=== PATIENT | female | born 1955 | race Caucasian/White ===

== ENCOUNTER → 2017-07-18 | Outpatient (CLI) | payer OTHER ==
[~2017-07-18] MED LIST: ABILIFY15 MG PO; ABILIFY30 MG PO; ADVAIR 500/501 DISK IH; ALBUTEROL17 G1 IH; AMBIEN10 MG PO; ATIVAN2 MG PO; BENZTROPINE ME0.5 MG PO; BUSPAR5 MG PO; CIPROFLOXACIN H10 ML BOTH EYES; CLONAZEPAM2 MG PO; DILAUDID2 MG PO; FLEXERIL10 MG PO; FUROSEMIDE80 MG PO; HYDROCHLOROTHIA25 MG PO; KLONOPIN0.5 M1 PO; KLONOPIN2 MG PO; KLOR-CON M2020 MEQ PO; LASIX40 MG PO; LASIX80 MG PO; LEXAPRO20 MG PO; OMEPRAZOLE40 M1 PO; OXECTA5 MG PO; PEPCID AC10 M1 PO; PERCOCET 10/1 TABLET PO; PERCOCET 5/31 TABLET PO; PRILOSEC10 MG PO; PROTONIX40 M1 PO; RANITIDINE HCL150 M1 PO; RANITIDINE HCL150 MG PO; RANITIDINE HCL300 M1 PO; RISPERDAL0.5 MG PO; RISPERIDONE2 MG PO; ROXICODONE5 MG PO; SINGULAIR10 MG PO; SPIRIVA1 INHALATI IH; SPIRONOLACTONE100 MG PO; SULFACETAMIDE S15 ML RIGHT EYE; TRAMADOL HCL50 MG PO; ULTRAM50 MG PO; VENTOLIN HFA18 GM IH; VICODIN 5-3001 EACH PO
[2017-07-18 08:55] LABS: TYPE OF FLUID PARACENTESIS
[2017-07-18 09:37] LABS: BODY FLUID PROTEIN < 3.0 G/DL
[2017-07-18 09:58] LABS: BODY FLUID EOSINOPHILS 0 % (0-25); BODY FLUID RBC'S 1000 /MM^3 (0-100); BODY FLUID WBC'S 213 /MM^3 (0-500); MONONUCLEAR WBC'S 74 %; POLYNUCLEAR WBC'S 26 % (0-25)
== END | disposition home or self-care (01) ==
LOC: RAD 07:57
PROVIDERS: Radiology Diagnostic Radiology
PROC: 0W9G3ZZ Drainage of Peritoneal Cavity, Percutaneous Approach (ICD-10-PCS; principal; 2017-07-18)
DX: R18.8 Other ascites (principal)
CPT/HCPCS: 49083; 84157; 87070; 87205; 88108; 89051

== ENCOUNTER → 2017-08-24 | Outpatient (CLI) | payer OTHER ==
[~2017-08-24] MED LIST changes: +CLONAZEPAM1 MG PO; +INDERAL10 MG PO; +OXYCODONE HCL10 MG PO; +POTASSIUM CHLO20 MEQ PO; +PRAZOSIN HCL1 MG PO; -ROXICODONE5 MG PO; +SUCRALFATE1 GM PO
[2017-08-24 09:32] LABS: TYPE OF FLUID PARACENTESIS
[2017-08-24 09:41] LABS: BODY FLUID RBC'S 1000 /MM^3 (0-100); BODY FLUID WBC'S 112 /MM^3 (0-500)
[2017-08-24 10:02] LABS: BODY FLUID EOSINOPHILS 0 % (0-25); MONO RAW COUNT 55; MONONUCLEAR WBC'S 55 %; POLY RAW COUNT 45; POLYNUCLEAR WBC'S 45 % (0-25)
[2017-08-24 10:34] LABS: BODY FLUID LDH 30 IU/L; BODY FLUID PROTEIN < 3.0 G/DL
== END | disposition home or self-care (01) ==
LOC: RAD 08-22 08:30
PROVIDERS: Specialist
PROC: 0W9G3ZZ Drainage of Peritoneal Cavity, Percutaneous Approach (ICD-10-PCS; principal; 2017-08-24)
DX: R18.8 Other ascites (principal)
CPT/HCPCS: 49083; 82945; 83615 91; 84157; 87070; 87205; 88108; 88305; 89051; P9047

== ENCOUNTER 2017-08-30 08:26 | Inpatient (IN) | payer OTHER ==
[~2017-08-30] VITALS: Ht 157.5 cm; Wt 92.7 kg
[~2017-08-30 08:26] MED LIST changes: -INDERAL10 MG PO; -PRAZOSIN HCL1 MG PO; -SUCRALFATE1 GM PO
[2017-08-30 09:06] LABS: EOSINOPHIL (%) 0.5 % (0-5); HEMATOCRIT 40.6 % (36.0-46.0); IMMATURE GRANULOCYTE (%) 0.4 % (0.0-0.7); INSTRUMENT ABS NEUTROPHIL CT 6.5 K/uL; LYMPHOCYTE COUNT 0.8 K/uL (1.0-2.8); MCH 32.7 PG (29.0-34.0); MCHC 35.7 G/DL (30.0-36.0); MCV 91.4 FL (83-99); MEAN PLAT.VOLUME 12.1 uM^3 (9.5-12.4); MONOCYTE (%) 8.1 % (3-12); MONOCYTE COUNT 0.7 K/uL (0-0.8); NEUTROPHIL (%) 80.9 % (45-76); NEUTROPHIL COUNT 6.5 K/uL (1.8-6.4); PLATELET COUNT 56 K/uL (156-360); RBC DIS.WIDTH-CV 14.8 % (11.8-14.6); RBC DIS.WIDTH-SD 49.6 % (39-53); RED BLOOD COUNT 4.44 M/uL (3.80-5.20)
[2017-08-30 09:12] LABS: INTER. NORMALIZED RATIO 1.3; PROTHROMBIN TIME 14.6 SEC (10.2-12.9)
[2017-08-30 09:27] LABS: CHLORIDE 104 mEq/L (99-109); POTASSIUM 3.8 mEq/L (3.7-5.4); SODIUM 128 mEq/L (136-147)
[2017-08-30 09:29] LABS: GLUCOSE 125 mg/dL (70-99)
[2017-08-30 09:31] LABS: ANION GAP 4 MEQ/L (2-14); TOTAL BILIRUBIN 2.5 mg/dL (0.0-1.0)
[2017-08-30 09:33] LABS: ALKALINE PHOSPHATASE 142 IU/L (3-129); GFR ESTIMATE (CALCULATED) > 59 mL/min/
[2017-08-30 09:34] LABS: UREA NITROGEN (BUN) 7 mg/dL (9-23)
[2017-08-30 09:36] LABS: LIPASE 13 U/L (1.0-51.0)
[2017-08-30 13:53] LABS: TYPE OF FLUID PERITONEAL
[2017-08-30 14:07] LABS: BODY FLUID RBC'S 1000 /MM^3 (0-100); BODY FLUID WBC'S 1825 /MM^3 (0-500)
[2017-08-30 14:23] LABS: BODY FLUID EOSINOPHILS 0 % (0-25); MONONUCLEAR WBC'S 5 %; POLYNUCLEAR WBC'S 95 % (0-25)
[2017-08-30] MEDS ORDERED: SUCRALFATE1 GM PO (14:51)
[2017-08-30] MEDS ORDERED: INDERAL10 MG PO (14:55)
[2017-08-30] MEDS ORDERED: PRAZOSIN HCL1 MG PO (14:55)
[2017-08-30 17:03] VITALS: BP 120/56
[2017-08-31 06:27] LABS: INTER. NORMALIZED RATIO 1.4; PROTHROMBIN TIME 16.3 SEC (10.2-12.9)
[2017-08-31 06:31] VITALS: BP 90/62
[2017-08-31 06:33] LABS: ANION GAP 8 MEQ/L (2-14); CHLORIDE 101 MEQ/L (99-109); GFR ESTIMATE (CALCULATED) > 59 mL/min/; GLUCOSE 107 mg/dL (70-99); POTASSIUM 3.8 MEQ/L (3.7-5.4); SAMPLE HEMOLYSIS CHECK 0; SAMPLE ICTERIC CHECK 0; SAMPLE LIPEMIA CHECK 0; SODIUM 132 MEQ/L (136-147); UREA NITROGEN (BUN) 7 mg/dL (9-23)
[2017-08-31 07:06] VITALS: BP 98/54
[2017-08-31 07:20] LABS: EOSINOPHIL (%) 2.5 % (0-5); EOSINOPHIL COUNT 0.1 K/uL (0-0.3); HEMATOCRIT 32.2 % (36.0-46.0); IMMATURE GRANULOCYTE (%) 0.6 % (0.0-0.7); INSTRUMENT ABS NEUTROPHIL CT 2.3 K/uL; LYMPHOCYTE COUNT 0.5 K/uL (1.0-2.8); MCH 32.6 PG (29.0-34.0); MCHC 34.5 G/DL (30.0-36.0); MCV 94.7 FL (83-99); MEAN PLAT.VOLUME 12.4 uM^3 (9.5-12.4); MONOCYTE COUNT 0.3 K/uL (0-0.8); NEUTROPHIL (%) 71.5 % (45-76); NEUTROPHIL COUNT 2.3 K/uL (1.8-6.4); PLAT.SUFFICIENCY DECREASED; PLATELET COUNT 39 K/uL (156-360); RBC DIS.WIDTH-CV 14.9 % (11.8-14.6); RBC DIS.WIDTH-SD 51.8 % (39-53); WHITE BLOOD COUNT 3.2 K/uL (4.1-10.2)
[2017-08-31 16:49] VITALS: BP 100/60
[2017-09-01 00:04] LABS: BODY FLUID RBC'S 3275 /MM^3 (0-100); BODY FLUID WBC'S 134 /MM^3 (0-500); RED CELL AREA COUNTED 0.4; RED CELL DILUTION 1; WBC AREA COUNTED 18; WBC DILUTION 1; WHITE CELL RAW COUNT 242
[2017-09-01 00:37] VITALS: BP 122/60
[2017-09-01 00:49] LABS: BODY FLUID EOSINOPHILS 0 % (0-25); MONO RAW COUNT 54; MONONUCLEAR WBC'S 54 %; POLY RAW COUNT 46; POLYNUCLEAR WBC'S 46 % (0-25)
[2017-09-01 06:11] LABS: MCH 33.2 PG (29.0-34.0); MCHC 35.6 G/DL (30.0-36.0); MCV 93.2 FL (83-99); RBC DIS.WIDTH-CV 14.5 % (11.8-14.6); RBC DIS.WIDTH-SD 49.1 % (39-53); RED BLOOD COUNT 3.65 M/uL (3.80-5.20); WHITE BLOOD COUNT 5.3 K/uL (4.1-10.2)
[2017-09-01 06:33] LABS: ANION GAP 7 MEQ/L (2-14); CHLORIDE 100 MEQ/L (99-109); GFR ESTIMATE (CALCULATED) > 59 mL/min/; GLUCOSE 94 mg/dL (70-99); POTASSIUM 3.9 MEQ/L (3.7-5.4); SAMPLE HEMOLYSIS CHECK 0; SAMPLE ICTERIC CHECK 0; SAMPLE LIPEMIA CHECK 0; SODIUM 131 MEQ/L (136-147); UREA NITROGEN (BUN) 7 mg/dL (9-23)
[2017-09-01 06:55] VITALS: BP 112/58
[2017-09-01 07:03] LABS: IMM.PLATELET FRACTION 10.7 (1-7); MEAN PLAT.VOLUME 13.3 uM^3 (9.5-12.4); PLAT.SUFFICIENCY DECREASED; PLATELET COUNT 39 K/uL (156-360)
[2017-09-01 15:47] VITALS: BP 110/77
[2017-09-01 23:15] VITALS: BP 121/58
[2017-09-02 06:33] LABS: ALKALINE PHOSPHATASE 84 IU/L (3-129); DIRECT BILIRUBIN 0.4 mg/dL (0.0-0.3); TOTAL BILIRUBIN 1.1 MG/DL (0.0-1.0)
[2017-09-02 06:50] VITALS: BP 123/58
[2017-09-02 15:05] VITALS: BP 125/61
[2017-09-02 23:56] VITALS: BP 115/54
[2017-09-03 08:49] VITALS: BP 126/59
[2017-09-03 09:12] LABS: ANION GAP 8 MEQ/L (2-14); CHLORIDE 98 MEQ/L (99-109); GFR ESTIMATE (CALCULATED) > 59 mL/min/; POTASSIUM 4.2 MEQ/L (3.7-5.4); SAMPLE HEMOLYSIS CHECK 0; SAMPLE ICTERIC CHECK 0; SAMPLE LIPEMIA CHECK 0; SODIUM 133 MEQ/L (136-147); UREA NITROGEN (BUN) 7 mg/dL (9-23)
[2017-09-03 09:14] LABS: GLUCOSE 120 mg/dL (70-99)
[2017-09-03 11:19] LABS: TYPE OF FLUID PARACENTESIS
[2017-09-03 13:26] LABS: BODY FLUID RBC'S 1000 /MM^3 (0-100); BODY FLUID WBC'S 233 /MM^3 (0-500)
[2017-09-03 13:30] LABS: BODY FLUID EOSINOPHILS 0 % (0-25); MONONUCLEAR WBC'S 88 %; POLYNUCLEAR WBC'S 12 % (0-25)
[2017-09-03 15:50] VITALS: BP 101/57
[2017-09-04 00:18] VITALS: BP 140/65
[2017-09-04 07:31] VITALS: BP 128/57
[2017-09-04 15:21] VITALS: BP 127/56
[2017-09-04 23:00] VITALS: BP 109/53
[2017-09-05 00:10] VITALS: BP 109/53
[2017-09-05 01:21] LABS: TROP-I INTERPRETATION NEGATIVE; TROPONIN-I < 0.01 ng/mL (0.0-0.30)
[2017-09-05 09:52] LABS: EOSINOPHIL (%) 2.8 % (0-5); EOSINOPHIL COUNT 0.1 K/uL (0-0.3); HEMATOCRIT 34.2 % (36.0-46.0); IMMATURE GRANULOCYTE (%) 0.5 % (0.0-0.7); INSTRUMENT ABS NEUTROPHIL CT 2.9 K/uL; LYMPHOCYTE COUNT 0.5 K/uL (1.0-2.8); MCH 33.1 PG (29.0-34.0); MCHC 34.8 G/DL (30.0-36.0); MCV 95.3 FL (83-99); MONOCYTE (%) 11.6 % (3-12); MONOCYTE COUNT 0.5 K/uL (0-0.8); NEUTROPHIL (%) 72.5 % (45-76); NEUTROPHIL COUNT 2.9 K/uL (1.8-6.4); RBC DIS.WIDTH-CV 15.2 % (11.8-14.6); RBC DIS.WIDTH-SD 53.1 % (39-53); RED BLOOD COUNT 3.59 M/uL (3.80-5.20)
[2017-09-05 09:56] LABS: IMM.PLATELET FRACTION 9.9 (1-7); MEAN PLAT.VOLUME 12.5 uM^3 (9.5-12.4); PLATELET COUNT 50 K/uL (156-360)
[2017-09-05 10:08] LABS: INTER. NORMALIZED RATIO 1.3; PROTHROMBIN TIME 14.4 SEC (10.2-12.9)
[2017-09-05 11:00] LABS: ALKALINE PHOSPHATASE 118 IU/L (3-129); ANION GAP 7 MEQ/L (2-14); CHLORIDE 99 MEQ/L (99-109); GFR ESTIMATE (CALCULATED) > 59 mL/min/; GLUCOSE 97 mg/dL (70-99); POTASSIUM 4.7 MEQ/L (3.7-5.4); SAMPLE HEMOLYSIS CHECK 2; SAMPLE ICTERIC CHECK 0; SAMPLE LIPEMIA CHECK 0; SODIUM 134 MEQ/L (136-147); TOTAL BILIRUBIN 1.4 MG/DL (0.0-1.0); UREA NITROGEN (BUN) 7 mg/dL (9-23)
[2017-09-06 00:28] VITALS: BP 105/55
[2017-09-06 05:59] LABS: HEMATOCRIT 33.4 % (36.0-46.0); MCH 33.2 PG (29.0-34.0); MCHC 34.4 G/DL (30.0-36.0); MCV 96.5 FL (83-99); MEAN PLAT.VOLUME 12.5 uM^3 (9.5-12.4); PLATELET COUNT 52 K/uL (156-360); RBC DIS.WIDTH-CV 15.5 % (11.8-14.6); RBC DIS.WIDTH-SD 55.4 % (39-53); RED BLOOD COUNT 3.46 M/uL (3.80-5.20)
[2017-09-06 06:22] LABS: ANION GAP 5 MEQ/L (2-14); CHLORIDE 100 MEQ/L (99-109); GFR ESTIMATE (CALCULATED) > 59 mL/min/; GLUCOSE 98 mg/dL (70-99); POTASSIUM 4.2 MEQ/L (3.7-5.4); SAMPLE HEMOLYSIS CHECK 0; SAMPLE ICTERIC CHECK 0; SAMPLE LIPEMIA CHECK 0; SODIUM 135 MEQ/L (136-147); UREA NITROGEN (BUN) 5 mg/dL (9-23)
[2017-09-06 07:05] VITALS: BP 126/60
[2017-09-06 15:30] VITALS: BP 128/56
[2017-09-06 23:53] VITALS: BP 106/51
== END 2017-09-07 07:20 | disposition left against medical advice (07) | DRG 372 ==
LOC: EME 08:26 → 5EAST 15:26 → EDOF 15:26 → ENRESERV 15:28 → 5EAST 16:31
PROVIDERS: Emergency Medicine; Hospitalist; Internal Medicine; Internal Medicine Gastroenterology; Physician Assistant Medical; Specialist
PROC: 0W9G3ZZ Drainage of Peritoneal Cavity, Percutaneous Approach (ICD-10-PCS; principal; 2017-08-30)
PROC: 0DBP8ZZ Excision of Rectum, Via Natural or Artificial Opening Endoscopic (ICD-10-PCS; 2017-09-05)
PROC: 0DJ08ZZ Inspection of Upper Intestinal Tract, Via Natural or Artificial Opening Endoscopic (ICD-10-PCS; 2017-09-05)
DX: K65.2 Spontaneous bacterial peritonitis (principal); R18.8 Other ascites; K63.9 Disease of intestine, unspecified; K70.9 Alcoholic liver disease, unspecified; B18.2 Chronic viral hepatitis C; E87.1 Hypo-osmolality and hyponatremia; G89.29 Other chronic pain; F40.00 Agoraphobia, unspecified; K31.89 Other diseases of stomach and duodenum; D69.59 Other secondary thrombocytopenia; I85.00 Esophageal varices without bleeding; K21.9 Gastro-esophageal reflux disease without esophagitis; E66.9 Obesity, unspecified; K76.6 Portal hypertension; K64.8 Other hemorrhoids; D12.4 Benign neoplasm of descending colon; K74.60 Unspecified cirrhosis of liver; K59.00 Constipation, unspecified; R16.1 Splenomegaly, not elsewhere classified; E87.70 Fluid overload, unspecified; D72.819 Decreased white blood cell count, unspecified; G47.30 Sleep apnea, unspecified; B96.89 Other specified bacterial agents as the cause of diseases classified elsewhere; F10.21 Alcohol dependence, in remission; F17.200 Nicotine dependence, unspecified, uncomplicated; F31.9 Bipolar disorder, unspecified; M19.90 Unspecified osteoarthritis, unspecified site; Z90.49 Acquired absence of other specified parts of digestive tract; Z80.1 Family history of malignant neoplasm of trachea, bronchus and lung; Z85.41 Personal history of malignant neoplasm of cervix uteri
CPT/HCPCS: 49083; 74000; 74176; 76705; 80048; 80053; 80076; 82150 91; 83605; 83690; 84484; 85025; 85027; 85610; 85730; 87040; 87070; 87177; 87205; 87493; 87506; 88305; 89051; 90686; 93005; 93976; 94640; 94640 76; 99202; 99281; 99285; C9113; J0696; J1170; J2250; J2270; J2405; J2543; J3010; P9047

== ENCOUNTER 2017-10-22 15:00 | Emergency (ER) | payer OTHER ==
[~2017-10-22] VITALS: Ht 157.5 cm; Wt 89.3 kg
[~2017-10-22 15:00] MED LIST changes: +INDERAL10 MG PO; +PRAZOSIN HCL1 MG PO; +SUCRALFATE1 GM PO
[2017-10-22 18:27] LABS: HEMATOCRIT 39.8 % (36.0-46.0); HEMOGLOBIN 13.9 G/DL (11.9-15.5); MCH 32.6 PG (29.0-34.0); MCHC 34.9 G/DL (30.0-36.0); MCV 93.4 FL (83-99); PLATELET COUNT 64 K/uL (156-360); RBC DIS.WIDTH-CV 15.4 % (11.8-14.6); RBC DIS.WIDTH-SD 53.3 % (39-53); RED BLOOD COUNT 4.26 M/uL (3.80-5.20); WHITE BLOOD COUNT 4.6 K/uL (4.1-10.2)
[2017-10-22 18:37] LABS: ALBUMIN 3.4 g/dL (3.2-4.8); CHLORIDE 105 mEq/L (99-109); POTASSIUM 4.6 mEq/L (3.7-5.4); SODIUM 137 mEq/L (136-147)
[2017-10-22 18:39] LABS: GLUCOSE 106 mg/dL (70-99); TOTAL PROTEIN 6.6 g/dL (6.4-8.3)
[2017-10-22 18:41] LABS: TOTAL BILIRUBIN 1.5 mg/dL (0.0-1.0)
[2017-10-22 18:43] LABS: ALKALINE PHOSPHATASE 147 IU/L (3-129); CREATININE 0.8 mg/dL (0.6-1.3); GFR ESTIMATE (CALCULATED) > 59 mL/min/
[2017-10-22 18:44] LABS: UREA NITROGEN (BUN) 6 mg/dL (9-23)
[2017-10-22 18:45] LABS: AST (GOT) 35 IU/L (2-34)
[2017-10-22 18:46] LABS: ALT (GPT) 25 IU/L (3-49)
[2017-10-22 18:50] LABS: TROP-I INTERPRETATION NEGATIVE; TROPONIN-I < 0.01 ng/mL (0.0-0.30)
[2017-10-22] MEDS ORDERED: RANITIDINE HCL150 M1 PO (19:30)
[2017-10-22] MEDS ORDERED: ROXICODONE5 MG PO (19:30)
[2017-10-22] MEDS ORDERED: ALDACTONE100 MG PO (19:30)
[2017-10-22] MEDS ORDERED: ZOFRAN ODT4 MG PO (19:32)
[2017-10-22 20:16] VITALS: BP 152/79
== END 2017-10-22 20:17 | disposition home or self-care (01) ==
LOC: EME 15:00
PROVIDERS: Emergency Medicine; Nurse Practitioner Family
DX: K70.31 Alcoholic cirrhosis of liver with ascites (principal); D69.6 Thrombocytopenia, unspecified; J44.9 Chronic obstructive pulmonary disease, unspecified; F32.9 Major depressive disorder, single episode, unspecified; K21.9 Gastro-esophageal reflux disease without esophagitis; F41.9 Anxiety disorder, unspecified; R56.9 Unspecified convulsions; Z85.9 Personal history of malignant neoplasm, unspecified; Z87.891 Personal history of nicotine dependence
CPT/HCPCS: 71046; 80048; 80053; 83880; 84484; 85027; 93005

== ENCOUNTER → 2017-10-28 | Outpatient (CLI) | payer OTHER ==
[~2017-10-28] MED LIST changes: +ALDACTONE100 MG PO; +ROXICODONE5 MG PO; +ZOFRAN ODT4 MG PO
[2017-10-28 09:11] LABS: TYPE OF FLUID PARACENTESIS
[2017-10-28 09:49] LABS: APPEARANCE SL. HAZY-COLORLESS; BODY FLUID EOSINOPHILS 0 % (0-25); BODY FLUID RBC'S 1000 /MM^3 (0-100); BODY FLUID WBC'S 129 /MM^3 (0-500); MONONUCLEAR WBC'S 76 %; POLYNUCLEAR WBC'S 24 % (0-25)
== END | disposition home or self-care (01) ==
LOC: RAD 09-14 08:15
PROVIDERS: Specialist
PROC: 0W9G3ZZ Drainage of Peritoneal Cavity, Percutaneous Approach (ICD-10-PCS; principal; 2017-10-28)
DX: R18.8 Other ascites (principal)
CPT/HCPCS: 49083; 87070; 87205; 88108; 89051; P9047

== ENCOUNTER → 2017-11-11 | Outpatient (CLI) | payer OTHER ==
[~2017-11-11] MED LIST changes: +NEURONTIN100 MG PO
[2017-11-11 09:23] LABS: TYPE OF FLUID PARACENTESIS
[2017-11-11 10:24] LABS: APPEARANCE SL. HAZY-YELLOW; BODY FLUID EOSINOPHILS 0 % (0-25); BODY FLUID RBC'S < 1000 /MM^3 (0-100); BODY FLUID WBC'S 164 /MM^3 (0-500); MONONUCLEAR WBC'S 35 %; POLYNUCLEAR WBC'S 65 % (0-25)
== END | disposition home or self-care (01) ==
LOC: RAD 11-09 08:30
PROVIDERS: Specialist
PROC: 0W9G3ZZ Drainage of Peritoneal Cavity, Percutaneous Approach (ICD-10-PCS; principal; 2017-11-11)
DX: R18.8 Other ascites (principal)
CPT/HCPCS: 49083; 88108; 89051; P9047

== ENCOUNTER → 2017-11-22 | Outpatient (CLI) | payer OTHER | END | disposition home or self-care (01) | LOC: RAD 08:22 | PROC: 0W9G3ZZ Drainage of Peritoneal Cavity, Percutaneous Approach (ICD-10-PCS; principal; 2017-11-22) | DX: R18.8 Other ascites (principal) | CPT/HCPCS: 49083; P9047 ==

== ENCOUNTER → 2017-12-02 | Outpatient (CLI) | payer OTHER ==
[2017-12-02 09:27] LABS: TYPE OF FLUID PARACENTESIS
[2017-12-02 09:53] LABS: APPEARANCE CLEAR-YELLOW; BODY FLUID RBC'S 1000 /MM^3 (0-100); BODY FLUID WBC'S 93 /MM^3 (0-500)
[2017-12-02 11:08] LABS: BODY FLUID EOSINOPHILS 2 % (0-25); MONONUCLEAR WBC'S 70 %; POLYNUCLEAR WBC'S 28 % (0-25)
== END | disposition home or self-care (01) ==
LOC: RAD 12-01 08:15
PROVIDERS: Specialist
PROC: 0W9G3ZZ Drainage of Peritoneal Cavity, Percutaneous Approach (ICD-10-PCS; principal; 2017-12-02)
DX: R18.8 Other ascites (principal)
CPT/HCPCS: 49083; 88108; 89051; P9047

== ENCOUNTER → 2017-12-13 | Outpatient (CLI) | payer OTHER | END | disposition home or self-care (01) | LOC: RAD 12-12 08:30 | PROC: 0W9G3ZZ Drainage of Peritoneal Cavity, Percutaneous Approach (ICD-10-PCS; principal; 2017-12-13) | DX: R18.8 Other ascites (principal) | CPT/HCPCS: 49083; P9047 ==

== ENCOUNTER 2017-12-21 03:13 | Observation (INO) | payer OTHER ==
[~2017-12-21] VITALS: Ht 157.5 cm; Wt 191.8 kg
[~2017-12-21 03:13] MED LIST changes: -NEURONTIN100 MG PO; +NEURONTIN300 MG PO
[2017-12-21 03:36] LABS: HEMOGLOBIN 13.4 G/DL (11.9-15.5); MCH 32.8 PG (29.0-34.0); MCHC 36.2 G/DL (30.0-36.0); MCV 90.5 FL (83-99); PLATELET COUNT 61 K/uL (156-360); RBC DIS.WIDTH-CV 14.9 % (11.8-14.6); RBC DIS.WIDTH-SD 49.8 % (39-53); RED BLOOD COUNT 4.09 M/uL (3.80-5.20); WHITE BLOOD COUNT 5.5 K/uL (4.1-10.2)
[2017-12-21 03:47] LABS: ALBUMIN 3.4 g/dL (3.2-4.8)
[2017-12-21 03:48] LABS: CHLORIDE 100 mEq/L (99-109); POTASSIUM 4.2 mEq/L (3.7-5.4); SODIUM 130 mEq/L (136-147)
[2017-12-21 03:50] LABS: GLUCOSE 94 mg/dL (70-99); TOTAL PROTEIN 6.2 g/dL (6.4-8.3)
[2017-12-21 03:53] LABS: ALKALINE PHOSPHATASE 172 IU/L (3-129)
[2017-12-21 03:54] LABS: CREATININE 0.7 mg/dL (0.6-1.3); GFR ESTIMATE (CALCULATED) > 59 mL/min/
[2017-12-21 03:55] LABS: AST (GOT) 37 IU/L (2-34); UREA NITROGEN (BUN) 9 mg/dL (9-23)
[2017-12-21 03:56] LABS: ALT (GPT) 19 IU/L (3-49)
[2017-12-21 03:57] LABS: LIPASE 46 U/L (1.0-51.0)
[2017-12-21 05:34] LABS: TYPE OF FLUID PARACENTESIS
[2017-12-21 06:22] LABS: APPEARANCE SL. HAZY-YELLOW; BODY FLUID EOSINOPHILS 0 % (0-25); BODY FLUID RBC'S 1000 /MM^3 (0-100); BODY FLUID WBC'S 73 /MM^3 (0-500); MONONUCLEAR WBC'S 87 %; POLYNUCLEAR WBC'S 13 % (0-25)
[2017-12-21 06:25] LABS: BODY FLUID GLUCOSE 106 MG/DL; BODY FLUID PROTEIN < 3.0 G/DL
[2017-12-21 09:03] LABS: INTER. NORMALIZED RATIO 1.2
[2017-12-21 09:06] LABS: PTT 33.5 SEC (25-37)
[2017-12-21 11:41] VITALS: BP 119/57
[2017-12-21] MEDS ORDERED: MINIPRESS1 MG PO (13:28)
[2017-12-21] MEDS ORDERED: BUSPAR30 MG PO (13:29)
[2017-12-21] MEDS ORDERED: OXYCODONE HCL10 MG PO (13:29)
[2017-12-21] MEDS ORDERED: LEXAPRO20 MG PO (13:30)
[2017-12-21] MEDS ORDERED: ABILIFY15 MG PO (13:30)
[2017-12-21 19:45] VITALS: BP 100/51
[2017-12-22 00:47] VITALS: BP 92/44
[2017-12-22 08:00] VITALS: BP 104/52
[2017-12-22 09:06] VITALS: BP 106/74
== END 2017-12-22 10:31 | disposition home or self-care (01) ==
LOC: EME 03:13 → ENRESERV 07:35 → EDOF 07:35 → 5WEST 07:35 → ENRESERV 08:13 → 5WEST 09:03
PROVIDERS: Emergency Medicine; Family Medicine
DX: K70.31 Alcoholic cirrhosis of liver with ascites (principal); Z86.19 Personal history of other infectious and parasitic diseases; G89.29 Other chronic pain; M54.9 Dorsalgia, unspecified; J44.9 Chronic obstructive pulmonary disease, unspecified; Z85.41 Personal history of malignant neoplasm of cervix uteri; Z87.19 Personal history of other diseases of the digestive system; F10.21 Alcohol dependence, in remission; E66.01 Morbid (severe) obesity due to excess calories; Z68.45 Body mass index [BMI] 70 or greater, adult; D69.6 Thrombocytopenia, unspecified; E87.1 Hypo-osmolality and hyponatremia; Z87.891 Personal history of nicotine dependence; Z91.041 Radiographic dye allergy status; Z80.1 Family history of malignant neoplasm of trachea, bronchus and lung
CPT/HCPCS: 49083; 80053; 81003; 82040; 82945; 83690; 84157; 85027; 85610; 85730; 87070; 87205; 89051; G0378; J1170; J2270; J2405; P9047

== ENCOUNTER → 2017-12-28 | Outpatient (CLI) | payer OTHER ==
[~2017-12-28] VITALS: Ht 157.5 cm; Wt 92.5 kg
[~2017-12-28] MED LIST changes: +BUSPAR30 MG PO; +MINIPRESS1 MG PO
== END | disposition home or self-care (01) ==
LOC: RAD 12-27 13:15
PROC: 0W9G3ZZ Drainage of Peritoneal Cavity, Percutaneous Approach (ICD-10-PCS; principal; 2017-12-28)
DX: R18.8 Other ascites (principal)
CPT/HCPCS: 49083; P9047

== ENCOUNTER → 2018-01-06 | Outpatient (CLI) | payer OTHER | END | disposition home or self-care (01) | LOC: RAD 08:02 | PROC: 0W9G3ZZ Drainage of Peritoneal Cavity, Percutaneous Approach (ICD-10-PCS; principal; 2018-01-06) | DX: R18.8 Other ascites (principal) | CPT/HCPCS: 49083; P9047 ==

== ENCOUNTER → 2018-01-13 | Outpatient (CLI) | payer OTHER | END | disposition home or self-care (01) | LOC: RAD 08:06 | PROC: 0W9G3ZZ Drainage of Peritoneal Cavity, Percutaneous Approach (ICD-10-PCS; principal; 2018-01-13) | DX: R18.8 Other ascites (principal) | CPT/HCPCS: 49083; P9047 ==

== ENCOUNTER → 2018-01-19 | Outpatient (CLI) | payer OTHER ==
[2018-01-19 09:01] LABS: TYPE OF FLUID PARACENTESIS
[2018-01-19 09:45] LABS: APPEARANCE SL. HAZY-YELLOW; BODY FLUID EOSINOPHILS 0 % (0-25); BODY FLUID RBC'S 1000 /MM^3 (0-100); BODY FLUID WBC'S 81 /MM^3 (0-500); COMMENT MODERATE MACROPHAGES SEEN; MONONUCLEAR WBC'S 36 %; POLYNUCLEAR WBC'S 64 % (0-25)
== END | disposition home or self-care (01) ==
LOC: RAD 08:05
PROVIDERS: Specialist
PROC: 0W9G3ZZ Drainage of Peritoneal Cavity, Percutaneous Approach (ICD-10-PCS; principal; 2018-01-19)
DX: R18.8 Other ascites (principal)
CPT/HCPCS: 49083; 87070; 87205; 88108; 89051; P9047

== ENCOUNTER 2018-01-25 19:55 | Inpatient (IN) | payer OTHER ==
[~2018-01-25] VITALS: Ht 157.5 cm; Wt 85.1 kg
[2018-01-25 21:52] LABS: BASOPHIL (%) 0.6 % (0-1); EOSINOPHIL (%) 3.2 % (0-5); EOSINOPHIL COUNT 0.2 K/uL (0-0.3); HEMATOCRIT 35.5 % (36.0-46.0); IMMATURE GRANULOCYTE (%) 0.3 % (0.0-0.7); LYMPHOCYTE (%) 9.8 % (15-42); LYMPHOCYTE COUNT 0.7 K/uL (1.0-2.8); MCH 33.2 PG (29.0-34.0); MCHC 36.6 G/DL (30.0-36.0); MCV 90.6 FL (83-99); MONOCYTE (%) 9.2 % (3-12); MONOCYTE COUNT 0.6 K/uL (0-0.8); NEUTROPHIL (%) 76.9 % (45-76); NEUTROPHIL COUNT 5.3 K/uL (1.8-6.4); PLATELET COUNT 70 K/uL (156-360); RBC DIS.WIDTH-CV 14.8 % (11.8-14.6); RBC DIS.WIDTH-SD 49.4 % (39-53); RED BLOOD COUNT 3.92 M/uL (3.80-5.20); WHITE BLOOD COUNT 6.9 K/uL (4.1-10.2)
[2018-01-25 21:58] LABS: INTER. NORMALIZED RATIO 1.1
[2018-01-25 22:01] LABS: PTT 35.9 SEC (25-37)
[2018-01-25 22:20] LABS: ALBUMIN 3.6 g/dL (3.2-4.8); CHLORIDE 102 mEq/L (99-109); SODIUM 127 mEq/L (136-147)
[2018-01-25 22:22] LABS: GLUCOSE 114 mg/dL (70-99)
[2018-01-25 22:23] LABS: TOTAL PROTEIN 6.1 g/dL (6.4-8.3)
[2018-01-25 22:24] LABS: TOTAL BILIRUBIN 1.7 mg/dL (0.0-1.0)
[2018-01-25 22:26] LABS: ALKALINE PHOSPHATASE 205 IU/L (3-129); CREATININE 0.6 mg/dL (0.6-1.3); GFR ESTIMATE (CALCULATED) > 59 mL/min/
[2018-01-25 22:27] LABS: UREA NITROGEN (BUN) 8 mg/dL (9-23)
[2018-01-25 22:28] LABS: AST (GOT) 58 IU/L (2-34)
[2018-01-25 22:29] LABS: ALT (GPT) 40 IU/L (3-49); LIPASE 48 U/L (1.0-51.0)
[2018-01-26 00:46] LABS: APPEARANCE SL.HAZY ((CLEAR)); BILIRUBIN NEGATIVE; BLOOD NEGATIVE; COLOR AMBER ((YELLOW)); GLUCOSE (STRIP) NEGATIVE; KETONES NEGATIVE; LEUKOCYTES NEGATIVE; NITRITE NEGATIVE; PROTEIN (STRIP) NEGATIVE
[2018-01-26 01:01] LABS: BACTERIA 1+ /HPF; EPITHELIAL CELLS 1+ /HPF; HYALINE CASTS 0-5 /LPF; MUCUS 3+ /LPF; RED BLOOD CELLS 0-5 /HPF (0-5); UCUL ADDED? NO; WHITE BLOOD CELLS 0-5 /HPF (0-5)
[2018-01-26 01:30] LABS: HEMATOCRIT 34.3 % (36.0-46.0); HEMOGLOBIN 12.5 G/DL (11.9-15.5); MCH 33.2 PG (29.0-34.0); MCHC 36.4 G/DL (30.0-36.0); PLATELET COUNT 67 K/uL (156-360); RBC DIS.WIDTH-CV 14.8 % (11.8-14.6); RBC DIS.WIDTH-SD 49.2 % (39-53); RED BLOOD COUNT 3.77 M/uL (3.80-5.20); WHITE BLOOD COUNT 7.1 K/uL (4.1-10.2)
[2018-01-26 02:39] VITALS: BP 137/75
[2018-01-26 08:00] VITALS: BP 107/38; BP 113/61
[2018-01-26 09:24] LABS: HEMATOCRIT 35.4 % (36.0-46.0); HEMOGLOBIN 12.2 G/DL (11.9-15.5); MCH 31.8 PG (29.0-34.0); MCHC 34.5 G/DL (30.0-36.0); MCV 92.2 FL (83-99); PLATELET COUNT 65 K/uL (156-360); RBC DIS.WIDTH-SD 50.8 % (39-53); RED BLOOD COUNT 3.84 M/uL (3.80-5.20)
[2018-01-26 09:50] LABS: CHLORIDE 100 MEQ/L (99-109); CREATININE 0.8 MG/DL (0.6-1.3); GFR ESTIMATE (CALCULATED) > 59 mL/min/; GLUCOSE 117 mg/dL (70-99); SODIUM 125 MEQ/L (136-147); UREA NITROGEN (BUN) 11 mg/dL (9-23)
[2018-01-26 09:54] LABS: POTASSIUM 4.9 MEQ/L (3.7-5.4)
[2018-01-26 12:11] VITALS: BP 92/52
[2018-01-26 14:07] LABS: URIC ACID 4.6 mg/dL (3.1-9.2)
[2018-01-26 14:16] LABS: THYROTROPIN (TSH) 7.8 MIU/L (0.4-5.5)
[2018-01-26 17:27] VITALS: BP 90/52
[2018-01-26 20:03] VITALS: BP 106/54
[2018-01-26 23:49] VITALS: BP 96/52
[2018-01-27 03:44] VITALS: BP 101/56
[2018-01-27 05:58] LABS: ALBUMIN 3.5 G/DL (3.2-4.8); ALKALINE PHOSPHATASE 122 IU/L (3-129); ALT (GPT) 24 IU/L (3-49); AST (GOT) 35 IU/L (2-34); CHLORIDE 98 MEQ/L (99-109); CREATININE 0.9 MG/DL (0.6-1.3); GFR ESTIMATE (CALCULATED) > 59 mL/min/; GLUCOSE 99 mg/dL (70-99); POTASSIUM 5.1 MEQ/L (3.7-5.4); SODIUM 122 MEQ/L (136-147); TOTAL BILIRUBIN 1.4 MG/DL (0.0-1.0); TOTAL PROTEIN 5.1 G/DL (6.4-8.3); UREA NITROGEN (BUN) 18 mg/dL (9-23)
[2018-01-27 07:23] VITALS: BP 99/55
[2018-01-27 07:42] LABS: UR CREATININE CONCENTRATION 251.4 MG/DL
[2018-01-27 11:04] VITALS: BP 96/48
[2018-01-27 14:49] LABS: CHLORIDE 100 MEQ/L (99-109); CREATININE 0.8 MG/DL (0.6-1.3); GFR ESTIMATE (CALCULATED) > 59 mL/min/; GLUCOSE 109 mg/dL (70-99); POTASSIUM 4.8 MEQ/L (3.7-5.4); SODIUM 125 MEQ/L (136-147); UREA NITROGEN (BUN) 18 mg/dL (9-23)
[2018-01-27 15:26] VITALS: BP 115/58
[2018-01-27 19:41] VITALS: BP 96/53
[2018-01-27 22:38] VITALS: BP 91/50
[2018-01-28 07:14] VITALS: BP 100/51
[2018-01-28 10:22] LABS: CHLORIDE 102 MEQ/L (99-109); CREATININE 0.8 MG/DL (0.6-1.3); GFR ESTIMATE (CALCULATED) > 59 mL/min/; GLUCOSE 98 mg/dL (70-99); POTASSIUM 4.6 MEQ/L (3.7-5.4); SODIUM 129 MEQ/L (136-147); UREA NITROGEN (BUN) 20 mg/dL (9-23)
[2018-01-28 11:24] VITALS: BP 107/52
[2018-01-28 16:12] VITALS: BP 102/54
[2018-01-28 19:44] VITALS: BP 106/59
[2018-01-28 23:34] VITALS: BP 102/54
[2018-01-29 03:17] VITALS: BP 88/53
[2018-01-29 05:58] LABS: CHLORIDE 102 MEQ/L (99-109); CREATININE 0.7 MG/DL (0.6-1.3); GFR ESTIMATE (CALCULATED) > 59 mL/min/; GLUCOSE 95 mg/dL (70-99); POTASSIUM 4.7 MEQ/L (3.7-5.4); SODIUM 132 MEQ/L (136-147); UREA NITROGEN (BUN) 22 mg/dL (9-23)
[2018-01-29 07:43] VITALS: BP 91/46
[2018-01-29 11:28] VITALS: BP 94/53
[2018-01-29 15:53] VITALS: BP 111/55
[2018-01-29 19:05] VITALS: BP 105/51
[2018-01-29 23:48] VITALS: BP 120/53
[2018-01-30 03:41] VITALS: BP 102/56
[2018-01-30 06:08] LABS: CHLORIDE 103 MEQ/L (99-109); CREATININE 0.8 MG/DL (0.6-1.3); GFR ESTIMATE (CALCULATED) > 59 mL/min/; GLUCOSE 96 mg/dL (70-99); POTASSIUM 5.3 MEQ/L (3.7-5.4); SODIUM 132 MEQ/L (136-147); UREA NITROGEN (BUN) 21 mg/dL (9-23)
[2018-01-30 07:37] VITALS: BP 105/52
[2018-01-30 11:46] VITALS: BP 107/54
[2018-01-30 15:28] VITALS: BP 105/51
[2018-01-31 00:28] VITALS: BP 100/55
[2018-01-31 04:22] VITALS: BP 97/54
[2018-01-31 06:00] LABS: CHLORIDE 103 MEQ/L (99-109); CREATININE 0.8 MG/DL (0.6-1.3); GFR ESTIMATE (CALCULATED) > 59 mL/min/; GLUCOSE 96 mg/dL (70-99); POTASSIUM 4.3 MEQ/L (3.7-5.4); SODIUM 136 MEQ/L (136-147); UREA NITROGEN (BUN) 23 mg/dL (9-23)
[2018-01-31 07:20] VITALS: BP 129/65
[2018-01-31 11:34] LABS: HEMATOCRIT 31.8 % (36.0-46.0); HEMOGLOBIN 10.8 G/DL (11.9-15.5); MCH 32.2 PG (29.0-34.0); MCV 94.9 FL (83-99); RBC DIS.WIDTH-CV 15.1 % (11.8-14.6); RBC DIS.WIDTH-SD 52.6 % (39-53); RED BLOOD COUNT 3.35 M/uL (3.80-5.20); WHITE BLOOD COUNT 3.4 K/uL (4.1-10.2)
[2018-01-31 11:51] LABS: IMM.PLATELET FRACTION 6.7 (1-7); PLAT.SUFFICIENCY DECREASED; PLATELET CLUMPS PRESENT - PLATELET COUNTS APPEARS DECREASED
[2018-01-31 12:01] LABS: PLATELET COUNT UNABLE TO REPORT K/uL (156-360)
[2018-01-31 12:40] VITALS: BP 106/51
[2018-01-31] MEDS ORDERED: XIFAXAN550 MG PO (15:16)
[2018-01-31 15:52] VITALS: BP 105/52
[2018-01-31 19:05] VITALS: BP 102/53
[2018-02-01] VITALS: BP 103/51
[2018-02-01 04:21] VITALS: BP 97/56
[2018-02-01 05:25] LABS: HEMATOCRIT 32.3 % (36.0-46.0); HEMOGLOBIN 10.9 G/DL (11.9-15.5); MCHC 33.7 G/DL (30.0-36.0); MCV 94.7 FL (83-99); RBC DIS.WIDTH-CV 15.2 % (11.8-14.6); RBC DIS.WIDTH-SD 52.5 % (39-53); RED BLOOD COUNT 3.41 M/uL (3.80-5.20); WHITE BLOOD COUNT 3.6 K/uL (4.1-10.2)
[2018-02-01 05:52] LABS: CHLORIDE 105 MEQ/L (99-109); CREATININE 0.8 MG/DL (0.6-1.3); GFR ESTIMATE (CALCULATED) > 59 mL/min/; GLUCOSE 121 mg/dL (70-99); POTASSIUM 4.4 MEQ/L (3.7-5.4); SODIUM 138 MEQ/L (136-147); UREA NITROGEN (BUN) 22 mg/dL (9-23)
[2018-02-01 06:35] LABS: IMM.PLATELET FRACTION 7.2 (1-7); PLAT.SUFFICIENCY VERY DECREASED; PLATELET CLUMPS PRESENT - PLATELET COUNTS APPEARS DECREASED; PLATELET COUNT UNABLE TO REPORT K/uL (156-360)
[2018-02-01 07:00] VITALS: BP 98/54
[2018-02-01] MEDS ORDERED: LEVOTHYROXINE50 MCG PO (11:25)
[2018-02-01] MEDS ORDERED: FUROSEMIDE20 MG PO (11:25)
[2018-02-01] MEDS ORDERED: LACTULOSE10 GM/151 PO (11:31)
== END 2018-02-01 13:00 | disposition home health service (06) | DRG 433 ==
LOC: EME → EDBD 19:55 → EDOF 23:47 → 4SOUTH 23:47 → EDOF 23:47 → ENRESERV 23:48 → 4SOUTH 01-26 02:29
PROVIDERS: Emergency Medicine; Hospitalist; Internal Medicine; Internal Medicine Nephrology; Nurse Practitioner Adult Health
PROC: 0W9G3ZZ Drainage of Peritoneal Cavity, Percutaneous Approach (ICD-10-PCS; principal; 2018-01-26)
PROC: 0W9G3ZZ Drainage of Peritoneal Cavity, Percutaneous Approach (ICD-10-PCS; 2018-01-30)
DX: K70.31 Alcoholic cirrhosis of liver with ascites (principal); B18.2 Chronic viral hepatitis C; K72.90 Hepatic failure, unspecified without coma; E87.1 Hypo-osmolality and hyponatremia; K76.6 Portal hypertension; F10.10 Alcohol abuse, uncomplicated; D69.59 Other secondary thrombocytopenia; E87.70 Fluid overload, unspecified; J44.9 Chronic obstructive pulmonary disease, unspecified; K21.9 Gastro-esophageal reflux disease without esophagitis; K59.00 Constipation, unspecified; F31.9 Bipolar disorder, unspecified; F41.9 Anxiety disorder, unspecified; G89.29 Other chronic pain; M54.9 Dorsalgia, unspecified; M19.90 Unspecified osteoarthritis, unspecified site; Z76.82 Awaiting organ transplant status; Z80.1 Family history of malignant neoplasm of trachea, bronchus and lung; Z85.41 Personal history of malignant neoplasm of cervix uteri; F19.11 Other psychoactive substance abuse, in remission; E66.9 Obesity, unspecified; F17.200 Nicotine dependence, unspecified, uncomplicated; Z68.38 Body mass index [BMI] 38.0-38.9, adult
CPT/HCPCS: 49083; 80048; 80048 91; 80053; 81003; 82105 90; 82140; 82550; 82570; 83690; 83935; 84300; 84439; 84443; 84481; 84540; 84550; 85025; 85027; 85610; 85730; 93005; 94640; 94640 76; 94760; 99202; 99281; 99285; G0378; J1170; J1644; J1940; J2405; J3010; P9047

== ENCOUNTER → 2018-02-15 | Outpatient (CLI) | payer OTHER ==
[~2018-02-15] MED LIST changes: +FUROSEMIDE20 MG PO; +LACTULOSE10 GM/151 PO; +LEVOTHYROXINE50 MCG PO; +XIFAXAN550 MG PO
== END | disposition home or self-care (01) ==
LOC: RAD 08:06
PROC: 0W9G3ZZ Drainage of Peritoneal Cavity, Percutaneous Approach (ICD-10-PCS; principal; 2018-02-15)
DX: R18.8 Other ascites (principal)
CPT/HCPCS: 49083; P9047

== ENCOUNTER → 2018-02-22 | Outpatient (CLI) | payer OTHER | END | disposition home or self-care (01) | LOC: RAD 07:53 | PROC: 0W9G3ZZ Drainage of Peritoneal Cavity, Percutaneous Approach (ICD-10-PCS; principal; 2018-02-22) | DX: R18.8 Other ascites (principal); K74.60 Unspecified cirrhosis of liver | CPT/HCPCS: 49083; P9047 ==

== ENCOUNTER → 2018-02-24 | Outpatient (CLI) | payer OTHER | END | disposition home or self-care (01) | LOC: RAD 10:51 | PROC: 0W9G3ZZ Drainage of Peritoneal Cavity, Percutaneous Approach (ICD-10-PCS; principal; 2018-02-24) | DX: R18.8 Other ascites (principal); K74.60 Unspecified cirrhosis of liver | CPT/HCPCS: 49083; P9047 ==

== ENCOUNTER → 2018-03-01 | Outpatient (CLI) | payer OTHER | END | disposition home or self-care (01) | LOC: RAD 08:11 | PROC: 0W9G3ZZ Drainage of Peritoneal Cavity, Percutaneous Approach (ICD-10-PCS; principal; 2018-03-01) | DX: R18.8 Other ascites (principal); K74.60 Unspecified cirrhosis of liver | CPT/HCPCS: 49083; P9047 ==

== ENCOUNTER → 2018-03-07 | Outpatient (CLI) | payer OTHER | END | disposition home or self-care (01) | LOC: RAD 02-08 08:30 | PROC: 0W9G3ZZ Drainage of Peritoneal Cavity, Percutaneous Approach (ICD-10-PCS; principal; 2018-03-07) | DX: R18.8 Other ascites (principal); K74.60 Unspecified cirrhosis of liver | CPT/HCPCS: 49083; P9047 ==

== ENCOUNTER → 2018-03-14 | Outpatient (CLI) | payer OTHER | END | disposition home or self-care (01) | LOC: RAD 08:30 | PROC: 0W9G3ZZ Drainage of Peritoneal Cavity, Percutaneous Approach (ICD-10-PCS; principal; 2018-03-14) | DX: R18.8 Other ascites (principal); K74.60 Unspecified cirrhosis of liver | CPT/HCPCS: 49083; P9047 ==

== ENCOUNTER → 2018-03-21 | Outpatient (CLI) | payer OTHER ==
[~2018-03-21] MED LIST changes: +METOLAZONE5 MG PO
== END | disposition home or self-care (01) ==
LOC: RAD 08:10
PROC: 0W9G3ZZ Drainage of Peritoneal Cavity, Percutaneous Approach (ICD-10-PCS; principal; 2018-03-21)
DX: R18.8 Other ascites (principal)
CPT/HCPCS: 49083; 87070; 87075; 87205; P9047

== ENCOUNTER 2018-03-22 20:50 | Inpatient (IN) | payer OTHER ==
[~2018-03-22] VITALS: Ht 157.5 cm; Wt 87.0 kg
[~2018-03-22 20:50] MED LIST changes: -METOLAZONE5 MG PO
[2018-03-22 21:11] LABS: BASOPHIL (%) 0.5 % (0-1); BASOPHIL COUNT 0.1 K/uL (0-0.1); EOSINOPHIL (%) 2.4 % (0-5); EOSINOPHIL COUNT 0.3 K/uL (0-0.3); HEMATOCRIT 29.1 % (36.0-46.0); HEMOGLOBIN 10.5 G/DL (11.9-15.5); IMMATURE GRANULOCYTE (%) 0.9 % (0.0-0.7); LYMPHOCYTE (%) 8.4 % (15-42); LYMPHOCYTE COUNT 0.9 K/uL (1.0-2.8); MCH 32.2 PG (29.0-34.0); MCHC 36.1 G/DL (30.0-36.0); MCV 89.3 FL (83-99); MONOCYTE (%) 10.3 % (3-12); MONOCYTE COUNT 1.1 K/uL (0-0.8); NEUTROPHIL (%) 77.5 % (45-76); NEUTROPHIL COUNT 8.6 K/uL (1.8-6.4); RBC DIS.WIDTH-CV 16.6 % (11.8-14.6); RBC DIS.WIDTH-SD 54.1 % (39-53); RED BLOOD COUNT 3.26 M/uL (3.80-5.20); WHITE BLOOD COUNT 11.1 K/uL (4.1-10.2)
[2018-03-22 21:13] LABS: PLATELET COUNT 138 K/uL (156-360)
[2018-03-22 21:23] LABS: CHLORIDE 94 mEq/L (99-109)
[2018-03-22 21:25] LABS: GLUCOSE 134 mg/dL (70-99); TOTAL PROTEIN 5.9 g/dL (6.4-8.3)
[2018-03-22 21:27] LABS: TOTAL BILIRUBIN 1.9 mg/dL (0.0-1.0)
[2018-03-22 21:28] LABS: ALKALINE PHOSPHATASE 210 IU/L (3-129); CREATININE 2.3 mg/dL (0.6-1.3); GFR ESTIMATE (CALCULATED) 23 mL/min/
[2018-03-22 21:30] LABS: AST (GOT) 52 IU/L (2-34); UREA NITROGEN (BUN) 55 mg/dL (9-23)
[2018-03-22 21:31] LABS: ALT (GPT) 48 IU/L (3-49)
[2018-03-22 21:32] LABS: LIPASE 43 U/L (1.0-51.0)
[2018-03-22 21:38] LABS: TROP-I INTERPRETATION NEGATIVE; TROPONIN-I < 0.01 ng/mL (0.0-0.30)
[2018-03-22 21:54] LABS: SODIUM 116 mEq/L (136-147)
[2018-03-22 21:55] LABS: BASE EXCESS -11.4 mEq/L (-3 to +3); BICARBONATE 12.9 mEq/L (22-26); CARBOXY HGB 2.6 % (0-5); METHEMOGLOBIN 0.9 % (0-1.5); O2 SATURATION (CALCULATED) 95.7 % (95-99); PCO2 24 mm Hg (35-45); PO2 100 mm Hg (80-100); pH 7.34 (7.35-7.45)
[2018-03-22 21:56] LABS: SITE LB
[2018-03-22 22:37] LABS: POTASSIUM ND MEQ/L (3.7-5.4)
[2018-03-22] MEDS ORDERED: METOLAZONE5 MG PO (23:09)
[2018-03-23] VITALS (23 sets, daily range): BP systolic 85–487; BP diastolic 34–54
[2018-03-23 00:47] LABS: CHLORIDE 97 mEq/L (99-109)
[2018-03-23 00:49] LABS: GLUCOSE 104 mg/dL (70-99)
[2018-03-23 00:53] LABS: CREATININE 2.2 mg/dL (0.6-1.3); GFR ESTIMATE (CALCULATED) 24 mL/min/; UREA NITROGEN (BUN) 56 mg/dL (9-23)
[2018-03-23 01:09] LABS: POTASSIUM 7.8 mEq/L (3.7-5.4); SODIUM 118 mEq/L (136-147)
[2018-03-23 04:32] LABS: HEMATOCRIT 27.2 % (36.0-46.0); HEMOGLOBIN 9.7 G/DL (11.9-15.5); MCH 31.9 PG (29.0-34.0); MCHC 35.7 G/DL (30.0-36.0); MCV 89.5 FL (83-99); PLATELET COUNT 100 K/uL (156-360); RBC DIS.WIDTH-CV 16.6 % (11.8-14.6); RBC DIS.WIDTH-SD 54.5 % (39-53); RED BLOOD COUNT 3.04 M/uL (3.80-5.20); WHITE BLOOD COUNT 9.4 K/uL (4.1-10.2)
[2018-03-23 04:44] LABS: CHLORIDE 97 mEq/L (99-109); SODIUM 120 mEq/L (136-147)
[2018-03-23 04:47] LABS: GLUCOSE 123 mg/dL (70-99)
[2018-03-23 04:50] LABS: CREATININE 2.2 mg/dL (0.6-1.3); GFR ESTIMATE (CALCULATED) 24 mL/min/
[2018-03-23 04:51] LABS: UREA NITROGEN (BUN) 57 mg/dL (9-23)
[2018-03-23 04:53] LABS: CREATINE KINASE 55 IU/L (1-294)
[2018-03-23 04:55] LABS: INTER. NORMALIZED RATIO 1.2
[2018-03-23 04:57] LABS: POTASSIUM 7.4 mEq/L (3.7-5.4)
[2018-03-23 12:44] LABS: HEMATOCRIT 25.9 % (36.0-46.0); HEMOGLOBIN 9.1 G/DL (11.9-15.5); MCH 31.5 PG (29.0-34.0); MCHC 35.1 G/DL (30.0-36.0); MCV 89.6 FL (83-99); RBC DIS.WIDTH-CV 16.8 % (11.8-14.6); RBC DIS.WIDTH-SD 55.3 % (39-53); RED BLOOD COUNT 2.89 M/uL (3.80-5.20); WHITE BLOOD COUNT 6.6 K/uL (4.1-10.2)
[2018-03-23 12:54] LABS: PLAT.SUFFICIENCY DECREASED
[2018-03-23 12:55] LABS: ALBUMIN 3.3 G/DL (3.2-4.8); CHLORIDE 98 MEQ/L (99-109); CREATININE 1.9 MG/DL (0.6-1.3); GFR ESTIMATE (CALCULATED) 29 mL/min/; GLUCOSE 112 mg/dL (70-99); MAGNESIUM 1.9 mg/dl (1.3-2.7); POTASSIUM 6.1 MEQ/L (3.7-5.4); SODIUM 126 MEQ/L (136-147); UREA NITROGEN (BUN) 47 mg/dL (9-23)
[2018-03-23 13:08] LABS: PLATELET COUNT 65 K/uL (156-360)
[2018-03-23 16:51] LABS: UR CREATININE CONCENTRATION 30.3 MG/DL
[2018-03-23 18:04] LABS: ALBUMIN 4.7 G/DL (3.2-4.8); CHLORIDE 96 MEQ/L (99-109); CREATININE 1.9 MG/DL (0.6-1.3); GFR ESTIMATE (CALCULATED) 29 mL/min/; GLUCOSE 97 mg/dL (70-99); MAGNESIUM 1.9 mg/dl (1.3-2.7); POTASSIUM 5.3 MEQ/L (3.7-5.4); SODIUM 126 MEQ/L (136-147); UREA NITROGEN (BUN) 47 mg/dL (9-23)
[2018-03-23 20:38] LABS: APPEARANCE CLEAR ((CLEAR)); BILIRUBIN NEGATIVE; BLOOD SMALL; COLOR YELLOW ((YELLOW)); GLUCOSE (STRIP) 50; KETONES NEGATIVE; LEUKOCYTES NEGATIVE; NITRITE NEGATIVE; PROTEIN (STRIP) NEGATIVE; SPECIFIC GRAVITY 1.005 (1.000-1.030); UROBILINOGEN 0.2 MG/DL (0.2-1.0)
[2018-03-23 20:54] LABS: TYPE OF FLUID PARACENTESIS
[2018-03-23 20:57] LABS: BACTERIA NONE SEEN /HPF; EPITHELIAL CELLS RARE /HPF; HYALINE CASTS 15-20 /LPF; MUCUS TRACE /LPF; UCUL ADDED? NO; WHITE BLOOD CELLS 0-5 /HPF (0-5)
[2018-03-23 21:07] LABS: APPEARANCE HAZY-YELLOW; BODY FLUID RBC'S 2000 /MM^3 (0-100); BODY FLUID WBC'S 41 /MM^3 (0-500)
[2018-03-23 21:47] LABS: BODY FLUID EOSINOPHILS 3 % (0-25); MONONUCLEAR WBC'S 88 %; POLYNUCLEAR WBC'S 9 % (0-25)
[2018-03-23 23:28] LABS: CHLORIDE 97 mEq/L (99-109); SODIUM 126 mEq/L (136-147)
[2018-03-23 23:29] LABS: GLUCOSE 109 mg/dL (70-99)
[2018-03-23 23:33] LABS: CREATININE 1.9 mg/dL (0.6-1.3); GFR ESTIMATE (CALCULATED) 29 mL/min/
[2018-03-23 23:34] LABS: UREA NITROGEN (BUN) 50 mg/dL (9-23)
[2018-03-24] VITALS (20 sets, daily range): BP systolic 81–118; BP diastolic 38–82
[2018-03-24 00:46] LABS: ALBUMIN 4.1 g/dL (3.2-4.8)
[2018-03-24 00:49] LABS: HEMATOCRIT 20.5 % (36.0-46.0); HEMOGLOBIN 7.5 G/DL (11.9-15.5); MCH 32.6 PG (29.0-34.0); MCHC 36.6 G/DL (30.0-36.0); MCV 89.1 FL (83-99); RBC DIS.WIDTH-CV 16.7 % (11.8-14.6); RBC DIS.WIDTH-SD 54.2 % (39-53); WHITE BLOOD COUNT 4.3 K/uL (4.1-10.2)
[2018-03-24 02:04] LABS: PLAT.SUFFICIENCY VERY DECREASED
[2018-03-24 02:07] LABS: PLATELET COUNT 47 K/uL (156-360)
[2018-03-24 04:48] LABS: HEMATOCRIT 20.1 % (36.0-46.0); HEMOGLOBIN 7.4 G/DL (11.9-15.5); MCH 32.5 PG (29.0-34.0); MCHC 36.8 G/DL (30.0-36.0); MCV 88.2 FL (83-99); RBC DIS.WIDTH-CV 16.6 % (11.8-14.6); RBC DIS.WIDTH-SD 52.9 % (39-53); RED BLOOD COUNT 2.28 M/uL (3.80-5.20); WHITE BLOOD COUNT 3.9 K/uL (4.1-10.2)
[2018-03-24 05:00] LABS: CHLORIDE 95 mEq/L (99-109); INTER. NORMALIZED RATIO 1.3; POTASSIUM 5.1 mEq/L (3.7-5.4); SODIUM 123 mEq/L (136-147)
[2018-03-24 05:01] LABS: MAGNESIUM 1.8 mg/dL (1.3-2.7)
[2018-03-24 05:03] LABS: GLUCOSE 103 mg/dL (70-99)
[2018-03-24 05:05] LABS: TOTAL BILIRUBIN 1.8 mg/dL (0.0-1.0)
[2018-03-24 05:06] LABS: PHOSPHORUS 4.6 mg/dL (2.5-4.9)
[2018-03-24 05:07] LABS: CREATININE 1.8 mg/dL (0.6-1.3); GFR ESTIMATE (CALCULATED) 31 mL/min/
[2018-03-24 05:08] LABS: AST (GOT) 43 IU/L (2-34); UREA NITROGEN (BUN) 51 mg/dL (9-23)
[2018-03-24 05:09] LABS: ALT (GPT) 37 IU/L (3-49)
[2018-03-24 05:16] LABS: ALKALINE PHOSPHATASE 135 IU/L (3-129)
[2018-03-24 07:11] LABS: PLAT.SUFFICIENCY DECREASED
[2018-03-24 07:49] LABS: IMM.PLATELET FRACTION 5.5 (1-7); PLATELET COUNT 46 K/uL (156-360)
[2018-03-24 12:37] LABS: HEMATOCRIT 21.5 % (36.0-46.0); HEMOGLOBIN 7.6 G/DL (11.9-15.5); MCH 31.5 PG (29.0-34.0); MCHC 35.3 G/DL (30.0-36.0); MCV 89.2 FL (83-99); RBC DIS.WIDTH-CV 16.6 % (11.8-14.6); RBC DIS.WIDTH-SD 54.2 % (39-53); RED BLOOD COUNT 2.41 M/uL (3.80-5.20); WHITE BLOOD COUNT 3.2 K/uL (4.1-10.2)
[2018-03-24 13:03] LABS: ALBUMIN 4.2 G/DL (3.2-4.8); CHLORIDE 95 MEQ/L (99-109); CREATININE 1.5 MG/DL (0.6-1.3); GFR ESTIMATE (CALCULATED) 38 mL/min/; GLUCOSE 97 mg/dL (70-99); MAGNESIUM 1.8 mg/dl (1.3-2.7); PHOSPHORUS 3.9 mg/dL (2.5-4.9); POTASSIUM 5.1 MEQ/L (3.7-5.4); SODIUM 125 MEQ/L (136-147); UREA NITROGEN (BUN) 46 mg/dL (9-23)
[2018-03-24 13:27] LABS: PLATELET COUNT 40 K/uL (156-360)
[2018-03-24 18:38] LABS: ALBUMIN 3.9 G/DL (3.2-4.8); CHLORIDE 96 MEQ/L (99-109); CREATININE 1.5 MG/DL (0.6-1.3); GFR ESTIMATE (CALCULATED) 38 mL/min/; GLUCOSE 104 mg/dL (70-99); MAGNESIUM 1.8 mg/dl (1.3-2.7); PHOSPHORUS 3.6 mg/dL (2.5-4.9); POTASSIUM 5.4 MEQ/L (3.7-5.4); SODIUM 125 MEQ/L (136-147); UREA NITROGEN (BUN) 47 mg/dL (9-23)
[2018-03-24 19:24] LABS: TYPE OF FLUID PARACENTESIS
[2018-03-24 19:32] LABS: APPEARANCE YELLOW-CLEAR; BODY FLUID RBC'S 1000 /MM^3 (0-100); BODY FLUID WBC'S 68 /MM^3 (0-500)
[2018-03-24 20:17] LABS: BODY FLUID EOSINOPHILS 1 % (0-25); MONONUCLEAR WBC'S 63 %; POLYNUCLEAR WBC'S 36 % (0-25)
[2018-03-25] VITALS (26 sets, daily range): BP systolic 68–124; BP diastolic 36–78
[2018-03-25 00:48] LABS: HEMATOCRIT 20.2 % (36.0-46.0); HEMOGLOBIN 7.4 G/DL (11.9-15.5); MCH 32.6 PG (29.0-34.0); MCHC 36.6 G/DL (30.0-36.0); RBC DIS.WIDTH-CV 16.4 % (11.8-14.6); RBC DIS.WIDTH-SD 53.2 % (39-53); RED BLOOD COUNT 2.27 M/uL (3.80-5.20); WHITE BLOOD COUNT 2.3 K/uL (4.1-10.2)
[2018-03-25 01:10] LABS: ALBUMIN 4.1 g/dL (3.2-4.8); CHLORIDE 96 mEq/L (99-109); POTASSIUM 5.3 mEq/L (3.7-5.4); SODIUM 126 mEq/L (136-147)
[2018-03-25 01:11] LABS: MAGNESIUM 1.9 mg/dL (1.3-2.7)
[2018-03-25 01:13] LABS: GLUCOSE 95 mg/dL (70-99)
[2018-03-25 01:16] LABS: CREATININE 1.5 mg/dL (0.6-1.3); GFR ESTIMATE (CALCULATED) 38 mL/min/; PHOSPHORUS 3.4 mg/dL (2.5-4.9)
[2018-03-25 01:17] LABS: UREA NITROGEN (BUN) 47 mg/dL (9-23)
[2018-03-25 01:43] LABS: PLAT.SUFFICIENCY VERY DECREASED
[2018-03-25 01:57] LABS: IMM.PLATELET FRACTION 3.9 (1-7); PLATELET COUNT 38 K/uL (156-360)
[2018-03-25 05:29] LABS: HEMOGLOBIN 7.1 G/DL (11.9-15.5); MCH 31.6 PG (29.0-34.0); MCHC 35.5 G/DL (30.0-36.0); MCV 88.9 FL (83-99); RBC DIS.WIDTH-CV 16.7 % (11.8-14.6); RBC DIS.WIDTH-SD 54.4 % (39-53); RED BLOOD COUNT 2.25 M/uL (3.80-5.20); WHITE BLOOD COUNT 2.3 K/uL (4.1-10.2)
[2018-03-25 05:34] LABS: INTER. NORMALIZED RATIO 1.4
[2018-03-25 05:58] LABS: ALBUMIN 3.9 G/DL (3.2-4.8); ALKALINE PHOSPHATASE 131 IU/L (3-129); ALT (GPT) 26 IU/L (3-49); AST (GOT) 32 IU/L (2-34); CHLORIDE 96 MEQ/L (99-109); CREATININE 1.3 MG/DL (0.6-1.3); GFR ESTIMATE (CALCULATED) 44 mL/min/; GLUCOSE 87 mg/dL (70-99); MAGNESIUM 1.8 mg/dl (1.3-2.7); PHOSPHORUS 2.9 mg/dL (2.5-4.9); POTASSIUM 5.2 MEQ/L (3.7-5.4); SODIUM 125 MEQ/L (136-147); TOTAL BILIRUBIN 1.9 MG/DL (0.0-1.0); UREA NITROGEN (BUN) 44 mg/dL (9-23)
[2018-03-25 06:22] LABS: IMM.PLATELET FRACTION 5.2 (1-7); PLAT.SUFFICIENCY DECREASED; PLATELET COUNT 41 K/uL (156-360)
[2018-03-25 13:07] LABS: ALBUMIN 4.2 G/DL (3.2-4.8); CHLORIDE 98 MEQ/L (99-109); CREATININE 1.2 MG/DL (0.6-1.3); GFR ESTIMATE (CALCULATED) 49 mL/min/; GLUCOSE 96 mg/dL (70-99); PHOSPHORUS 2.9 mg/dL (2.5-4.9); POTASSIUM 4.7 MEQ/L (3.7-5.4); SODIUM 128 MEQ/L (136-147); UREA NITROGEN (BUN) 41 mg/dL (9-23)
[2018-03-26] VITALS (27 sets, daily range): BP systolic 81–140; BP diastolic 34–91
[2018-03-26 05:35] LABS: INTER. NORMALIZED RATIO 1.5
[2018-03-26 05:39] LABS: HEMATOCRIT 20.3 % (36.0-46.0); HEMOGLOBIN 7.1 G/DL (11.9-15.5); MCH 31.4 PG (29.0-34.0); MCV 89.8 FL (83-99); RBC DIS.WIDTH-CV 16.4 % (11.8-14.6); RBC DIS.WIDTH-SD 54.2 % (39-53); RED BLOOD COUNT 2.26 M/uL (3.80-5.20)
[2018-03-26 05:41] LABS: WHITE BLOOD COUNT 1.4 K/uL (4.1-10.2)
[2018-03-26 05:51] LABS: BASOPHIL (%) 0.7 % (0-1); EOSINOPHIL (%) 5.6 % (0-5); EOSINOPHIL COUNT 0.1 K/uL (0-0.3); LYMPHOCYTE (%) 24.5 % (15-42); LYMPHOCYTE COUNT 0.4 K/uL (1.0-2.8); MONOCYTE (%) 16.1 % (3-12); MONOCYTE COUNT 0.2 K/uL (0-0.8); NEUTROPHIL (%) 53.1 % (45-76); NEUTROPHIL COUNT 0.8 K/uL (1.8-6.4)
[2018-03-26 05:57] LABS: ALBUMIN 4.1 G/DL (3.2-4.8); ALKALINE PHOSPHATASE 110 IU/L (3-129); ALT (GPT) 23 IU/L (3-49); AST (GOT) 33 IU/L (2-34); CHLORIDE 100 MEQ/L (99-109); CREATININE 1.1 MG/DL (0.6-1.3); GFR ESTIMATE (CALCULATED) 54 mL/min/; GLUCOSE 90 mg/dL (70-99); MAGNESIUM 1.9 mg/dl (1.3-2.7); PHOSPHORUS 3.1 mg/dL (2.5-4.9); POTASSIUM 4.7 MEQ/L (3.7-5.4); SODIUM 130 MEQ/L (136-147); TOTAL BILIRUBIN 1.6 MG/DL (0.0-1.0); TOTAL PROTEIN 5.2 G/DL (6.4-8.3); UREA NITROGEN (BUN) 36 mg/dL (9-23)
[2018-03-26 06:11] LABS: IMM.PLATELET FRACTION 5.4 (1-7); PLAT.SUFFICIENCY DECREASED; PLATELET COUNT 37 K/uL (156-360)
[2018-03-27] VITALS (25 sets, daily range): BP systolic 80–130; BP diastolic 39–59
[2018-03-27 05:03] LABS: HEMATOCRIT 21.6 % (36.0-46.0); HEMOGLOBIN 7.8 G/DL (11.9-15.5); MCH 32.6 PG (29.0-34.0); MCHC 36.1 G/DL (30.0-36.0); MCV 90.4 FL (83-99); RBC DIS.WIDTH-CV 16.5 % (11.8-14.6); RBC DIS.WIDTH-SD 54.4 % (39-53); RED BLOOD COUNT 2.39 M/uL (3.80-5.20)
[2018-03-27 05:04] LABS: WHITE BLOOD COUNT 1.7 K/uL (4.1-10.2)
[2018-03-27 05:05] LABS: ALBUMIN 3.7 g/dL (3.2-4.8); POTASSIUM 4.4 mEq/L (3.7-5.4); SODIUM 134 mEq/L (136-147)
[2018-03-27 05:06] LABS: MAGNESIUM 1.9 mg/dL (1.3-2.7)
[2018-03-27 05:08] LABS: TOTAL PROTEIN 4.6 g/dL (6.4-8.3)
[2018-03-27 05:09] LABS: TOTAL BILIRUBIN 1.7 mg/dL (0.0-1.0)
[2018-03-27 05:11] LABS: ALKALINE PHOSPHATASE 138 IU/L (3-129); GFR ESTIMATE (CALCULATED) > 59 mL/min/; PHOSPHORUS 2.8 mg/dL (2.5-4.9)
[2018-03-27 05:12] LABS: UREA NITROGEN (BUN) 30 mg/dL (9-23)
[2018-03-27 05:13] LABS: AST (GOT) 35 IU/L (2-34)
[2018-03-27 05:14] LABS: ALT (GPT) 27 IU/L (3-49)
[2018-03-27 05:20] LABS: CHLORIDE 106 mEq/L (99-109); GLUCOSE 115 mg/dL (70-99)
[2018-03-27 07:07] LABS: IMM.PLATELET FRACTION 7.4 (1-7); PLAT.SUFFICIENCY VERY DECREASED; PLATELET COUNT 34 K/uL (156-360)
[2018-03-27 15:04] LABS: TYPE OF FLUID PARACENTESIS
[2018-03-27 16:01] LABS: APPEARANCE HAZY-YELLOW; BODY FLUID EOSINOPHILS 0 % (0-25); BODY FLUID RBC'S 2000 /MM^3 (0-100); BODY FLUID WBC'S 93 /MM^3 (0-500); MONONUCLEAR WBC'S 20 %; POLYNUCLEAR WBC'S 80 % (0-25)
[2018-03-27 16:09] LABS: BODY FLUID GLUCOSE 109 MG/DL; BODY FLUID LDH 28 IU/L; BODY FLUID PROTEIN < 3.0 G/DL
[2018-03-28] VITALS (28 sets, daily range): BP systolic 60–141; BP diastolic 38–55
[2018-03-28 05:18] LABS: HEMATOCRIT 21.2 % (36.0-46.0); HEMOGLOBIN 7.2 G/DL (11.9-15.5); MCH 31.2 PG (29.0-34.0); MCV 91.8 FL (83-99); RBC DIS.WIDTH-CV 16.8 % (11.8-14.6); RBC DIS.WIDTH-SD 56.3 % (39-53); RED BLOOD COUNT 2.31 M/uL (3.80-5.20)
[2018-03-28 05:40] LABS: ALBUMIN 3.4 G/DL (3.2-4.8); ALKALINE PHOSPHATASE 139 IU/L (3-129); ALT (GPT) 20 IU/L (3-49); AST (GOT) 29 IU/L (2-34); CHLORIDE 105 MEQ/L (99-109); CREATININE 1.1 MG/DL (0.6-1.3); GFR ESTIMATE (CALCULATED) 54 mL/min/; GLUCOSE 97 mg/dL (70-99); POTASSIUM 3.7 MEQ/L (3.7-5.4); SODIUM 138 MEQ/L (136-147); TOTAL BILIRUBIN 1.3 MG/DL (0.0-1.0); TOTAL PROTEIN 4.6 G/DL (6.4-8.3); UREA NITROGEN (BUN) 24 mg/dL (9-23)
[2018-03-28 05:45] LABS: IMM.PLATELET FRACTION 7.4 (1-7); PLAT.SUFFICIENCY VERY DECREASED
[2018-03-28 05:47] LABS: HIGH-SENS C-REACTIVE PROTEIN 2.63 MG/DL (0.02-0.20); MAGNESIUM 1.7 mg/dl (1.3-2.7); PHOSPHORUS 3.5 mg/dL (2.5-4.9)
[2018-03-28 05:51] LABS: PLATELET COUNT 5 K/uL (156-360); WHITE BLOOD COUNT 1.3 K/uL (4.1-10.2)
[2018-03-28 14:34] LABS: IMM.RETIC FRACTION 6.9 % (3-19); RETICULOCYTE COUNT 3.8 % (0.5-1.8)
[2018-03-28 14:46] LABS: BASOPHIL (%) 0.5 % (0-1); EOSINOPHIL (%) 2.9 % (0-5); EOSINOPHIL COUNT 0.1 K/uL (0-0.3); HEMATOCRIT 23.3 % (36.0-46.0); IMMATURE GRANULOCYTE (%) 0.5 % (0.0-0.7); LYMPHOCYTE (%) 19.5 % (15-42); LYMPHOCYTE COUNT 0.4 K/uL (1.0-2.8); MCHC 34.3 G/DL (30.0-36.0); MCV 93.2 FL (83-99); MONOCYTE (%) 14.8 % (3-12); MONOCYTE COUNT 0.3 K/uL (0-0.8); NEUTROPHIL (%) 61.8 % (45-76); NEUTROPHIL COUNT 1.3 K/uL (1.8-6.4); RBC DIS.WIDTH-CV 17.2 % (11.8-14.6); WHITE BLOOD COUNT 2.1 K/uL (4.1-10.2)
[2018-03-28 15:28] LABS: PLAT.SUFFICIENCY DECREASED
[2018-03-28 15:33] LABS: PLATELET COUNT 59 K/uL (156-360)
[2018-03-28 22:25] LABS: BODY FLUID PH 8.1 (())
[2018-03-29] VITALS (20 sets, daily range): BP systolic 102–151; BP diastolic 41–63
[2018-03-29 05:48] LABS: HEMOGLOBIN 8.3 G/DL (11.9-15.5); MCH 30.9 PG (29.0-34.0); MCHC 33.2 G/DL (30.0-36.0); MCV 92.9 FL (83-99); PLATELET COUNT 53 K/uL (156-360); RBC DIS.WIDTH-CV 17.2 % (11.8-14.6); RBC DIS.WIDTH-SD 57.7 % (39-53); RED BLOOD COUNT 2.69 M/uL (3.80-5.20)
[2018-03-29 05:54] LABS: ALBUMIN 3.5 G/DL (3.2-4.8); ALKALINE PHOSPHATASE 127 IU/L (3-129); ALT (GPT) 21 IU/L (3-49); AST (GOT) 30 IU/L (2-34); CHLORIDE 106 MEQ/L (99-109); GFR ESTIMATE (CALCULATED) > 59 mL/min/; GLUCOSE 104 mg/dL (70-99); MAGNESIUM 1.8 mg/dl (1.3-2.7); PHOSPHORUS 3.5 mg/dL (2.5-4.9); POTASSIUM 3.9 MEQ/L (3.7-5.4); SODIUM 140 MEQ/L (136-147); TOTAL PROTEIN 4.9 G/DL (6.4-8.3); UREA NITROGEN (BUN) 22 mg/dL (9-23); WHITE BLOOD COUNT 1.9 K/uL (4.1-10.2)
[2018-03-30] VITALS (10 sets, daily range): BP systolic 96–137; BP diastolic 42–73
[2018-03-30 05:30] LABS: ALBUMIN 3.7 G/DL (3.2-4.8); ALKALINE PHOSPHATASE 137 IU/L (3-129); ALT (GPT) 23 IU/L (3-49); AST (GOT) 34 IU/L (2-34); CHLORIDE 105 MEQ/L (99-109); GFR ESTIMATE (CALCULATED) > 59 mL/min/; GLUCOSE 114 mg/dL (70-99); SODIUM 137 MEQ/L (136-147); TOTAL BILIRUBIN 1.1 MG/DL (0.0-1.0); TOTAL PROTEIN 5.3 G/DL (6.4-8.3); UREA NITROGEN (BUN) 21 mg/dL (9-23)
[2018-03-30 15:03] LABS: Heparin Induced Plt Ab Negative (Negative)
[2018-03-31 02:50] VITALS: BP 124/57
[2018-03-31 07:30] VITALS: BP 100/51
[2018-03-31 09:21] LABS: HEMOGLOBIN 8.5 G/DL (11.9-15.5); MCH 31.7 PG (29.0-34.0); MCV 93.3 FL (83-99); PLATELET COUNT 65 K/uL (156-360); RBC DIS.WIDTH-CV 17.5 % (11.8-14.6); RBC DIS.WIDTH-SD 58.9 % (39-53); RED BLOOD COUNT 2.68 M/uL (3.80-5.20); WHITE BLOOD COUNT 3.5 K/uL (4.1-10.2)
[2018-03-31 09:43] LABS: ALBUMIN 3.4 G/DL (3.2-4.8); ALKALINE PHOSPHATASE 122 IU/L (3-129); ALT (GPT) 21 IU/L (3-49); AST (GOT) 35 IU/L (2-34); CHLORIDE 107 MEQ/L (99-109); CREATININE 0.9 MG/DL (0.6-1.3); GFR ESTIMATE (CALCULATED) > 59 mL/min/; GLUCOSE 122 mg/dL (70-99); POTASSIUM 3.7 MEQ/L (3.7-5.4); SODIUM 137 MEQ/L (136-147); TOTAL BILIRUBIN 1.2 MG/DL (0.0-1.0); TOTAL PROTEIN 4.9 G/DL (6.4-8.3); UREA NITROGEN (BUN) 17 mg/dL (9-23)
[2018-03-31 11:00] VITALS: BP 104/52
[2018-03-31 11:13] LABS: BASOPHIL (%) 0.3 % (0-1); EOSINOPHIL (%) 5.6 % (0-5); EOSINOPHIL COUNT 0.2 K/uL (0-0.3); HEMATOCRIT 25.1 % (36.0-46.0); HEMOGLOBIN 8.6 G/DL (11.9-15.5); IMMATURE GRANULOCYTE (%) 0.3 % (0.0-0.7); LYMPHOCYTE COUNT 0.5 K/uL (1.0-2.8); MCH 31.9 PG (29.0-34.0); MCHC 34.3 G/DL (30.0-36.0); MONOCYTE COUNT 0.5 K/uL (0-0.8); NEUTROPHIL (%) 63.8 % (45-76); PLATELET COUNT 60 K/uL (156-360); RBC DIS.WIDTH-CV 17.6 % (11.8-14.6); RBC DIS.WIDTH-SD 59.7 % (39-53); WHITE BLOOD COUNT 3.1 K/uL (4.1-10.2)
[2018-03-31 15:45] VITALS: BP 110/56
[2018-03-31 16:25] LABS: UFH SRA Result Negative (Negative)
[2018-03-31 19:47] VITALS: BP 111/56
[2018-04-01] VITALS (7 sets, daily range): BP systolic 109–133; BP diastolic 53–62
[2018-04-01 06:40] LABS: BASOPHIL (%) 0.3 % (0-1); EOSINOPHIL (%) 5.6 % (0-5); EOSINOPHIL COUNT 0.2 K/uL (0-0.3); HEMATOCRIT 25.4 % (36.0-46.0); HEMOGLOBIN 8.5 G/DL (11.9-15.5); IMMATURE GRANULOCYTE (%) 0.3 % (0.0-0.7); LYMPHOCYTE (%) 18.4 % (15-42); LYMPHOCYTE COUNT 0.6 K/uL (1.0-2.8); MCH 31.4 PG (29.0-34.0); MCHC 33.5 G/DL (30.0-36.0); MCV 93.7 FL (83-99); MONOCYTE (%) 16.7 % (3-12); MONOCYTE COUNT 0.5 K/uL (0-0.8); NEUTROPHIL (%) 58.7 % (45-76); NEUTROPHIL COUNT 1.8 K/uL (1.8-6.4); PLATELET COUNT 62 K/uL (156-360); RBC DIS.WIDTH-CV 17.4 % (11.8-14.6); RBC DIS.WIDTH-SD 59.5 % (39-53); RED BLOOD COUNT 2.71 M/uL (3.80-5.20); WHITE BLOOD COUNT 3.1 K/uL (4.1-10.2)
[2018-04-01 07:03] LABS: ALBUMIN 3.3 G/DL (3.2-4.8); ALKALINE PHOSPHATASE 150 IU/L (3-129); ALT (GPT) 22 IU/L (3-49); AST (GOT) 36 IU/L (2-34); CHLORIDE 105 MEQ/L (99-109); CREATININE 0.9 MG/DL (0.6-1.3); GFR ESTIMATE (CALCULATED) > 59 mL/min/; POTASSIUM 3.7 MEQ/L (3.7-5.4); SODIUM 137 MEQ/L (136-147); TOTAL PROTEIN 4.9 G/DL (6.4-8.3); UREA NITROGEN (BUN) 16 mg/dL (9-23)
[2018-04-01 07:04] LABS: GLUCOSE 91 mg/dL (70-99)
[2018-04-02 06:18] LABS: BASOPHIL (%) 0.7 % (0-1); EOSINOPHIL (%) 4.6 % (0-5); EOSINOPHIL COUNT 0.1 K/uL (0-0.3); HEMATOCRIT 26.3 % (36.0-46.0); IMMATURE GRANULOCYTE (%) 0.3 % (0.0-0.7); LYMPHOCYTE (%) 17.3 % (15-42); LYMPHOCYTE COUNT 0.5 K/uL (1.0-2.8); MCH 31.7 PG (29.0-34.0); MCHC 34.2 G/DL (30.0-36.0); MCV 92.6 FL (83-99); MONOCYTE COUNT 0.5 K/uL (0-0.8); NEUTROPHIL (%) 62.1 % (45-76); NEUTROPHIL COUNT 1.9 K/uL (1.8-6.4); PLATELET COUNT 57 K/uL (156-360); RBC DIS.WIDTH-CV 17.2 % (11.8-14.6); RBC DIS.WIDTH-SD 58.3 % (39-53); RED BLOOD COUNT 2.84 M/uL (3.80-5.20); WHITE BLOOD COUNT 3.1 K/uL (4.1-10.2)
[2018-04-02 06:41] LABS: ALBUMIN 3.3 G/DL (3.2-4.8); ALKALINE PHOSPHATASE 156 IU/L (3-129); ALT (GPT) 19 IU/L (3-49); AST (GOT) 34 IU/L (2-34); CHLORIDE 105 MEQ/L (99-109); CREATININE 0.9 MG/DL (0.6-1.3); GFR ESTIMATE (CALCULATED) > 59 mL/min/; GLUCOSE 103 mg/dL (70-99); POTASSIUM 3.5 MEQ/L (3.7-5.4); SODIUM 136 MEQ/L (136-147); TOTAL PROTEIN 4.9 G/DL (6.4-8.3); UREA NITROGEN (BUN) 16 mg/dL (9-23)
[2018-04-02 07:23] VITALS: BP 121/53
[2018-04-02] MEDS ORDERED: FUROSEMIDE20 MG PO (09:56)
[2018-04-02] MEDS ORDERED: MIDODRINE HCL5 MG PO (09:56)
[2018-04-02] MEDS ORDERED: PANTOPRAZOLE SO40 MG PO (09:56)
[2018-04-02] MEDS ORDERED: SPIRONOLACTONE50 MG PO (09:56)
[2018-04-02] MEDS ORDERED: NABI650T PO (09:56)
[2018-04-02] MEDS ORDERED: XIFAXAN550 MG PO (10:03)
[2018-04-02] MEDS ORDERED: LACTULOSE10 GM/151 PO (10:03)
[2018-04-02 11:30] VITALS: BP 118/57
== END 2018-04-02 13:50 | disposition home health service (06) | DRG 432 ==
LOC: EME 20:50 → 4WEST 23:16 → EDOF 23:16 → ENRESERV 23:19 → 4WEST 03-23 00:53 → ENRESERV 03-30 15:02 → 5EAST 03-30 17:45
PROVIDERS: Emergency Medicine; Internal Medicine; Internal Medicine Nephrology; Specialist
DX: K70.31 Alcoholic cirrhosis of liver with ascites (principal); Z66 Do not resuscitate; N17.9 Acute kidney failure, unspecified; E66.9 Obesity, unspecified; E87.2 Acidosis; K72.90 Hepatic failure, unspecified without coma; E87.5 Hyperkalemia; E87.1 Hypo-osmolality and hyponatremia; J18.9 Pneumonia, unspecified organism; D63.8 Anemia in other chronic diseases classified elsewhere; D69.59 Other secondary thrombocytopenia; K76.6 Portal hypertension; F31.9 Bipolar disorder, unspecified; G47.33 Obstructive sleep apnea (adult) (pediatric); G89.29 Other chronic pain; E86.0 Dehydration; I85.10 Secondary esophageal varices without bleeding; E03.9 Hypothyroidism, unspecified; F10.11 Alcohol abuse, in remission; E46 Unspecified protein-calorie malnutrition; J44.9 Chronic obstructive pulmonary disease, unspecified; K59.00 Constipation, unspecified; D61.818 Other pancytopenia; F41.9 Anxiety disorder, unspecified; Z68.36 Body mass index [BMI] 36.0-36.9, adult; Z85.41 Personal history of malignant neoplasm of cervix uteri; Z87.891 Personal history of nicotine dependence; Z86.19 Personal history of other infectious and parasitic diseases; Z79.899 Other long term (current) drug therapy
CPT/HCPCS: 36600; 49083; 71045; 71250; 74176; 76770; 80047; 80048; 80048 91; 80053; 80069; 81003; 82140; 82436; 82550; 82570; 82607; 82803; 82945; 83605; 83615; 83615 91; 83690; 83735; 83874 90; 83986 90; 84100; 84145 90; 84156; 84157; 84300; 84484; 84999; 85007; 85025; 85027; 85046; 85384; 85610; 86022 90; 86141; 86850; 86900; 86901; 87040; 87070; 87075; 87205; 87641; 88108; 89051; 93005; 94640; 94640 76; 94799; 97530 GO; 99202; 99281; 99285; C1788; C9113; J0461; J1450; J1630; J1644; J1940; J1956; J2060; J2405; J2543; J2597; J3010; J3370; J7030; J7050; J7070; P9035; P9047

== ENCOUNTER → 2018-04-04 | Outpatient (CLI) | payer OTHER ==
[~2018-04-04] MED LIST changes: +METOLAZONE5 MG PO; +MIDODRINE HCL5 MG PO; +NABI650T PO; +PANTOPRAZOLE SO40 MG PO; +SPIRONOLACTONE50 MG PO
[2018-04-04 09:08] LABS: TYPE OF FLUID PARACENTESIS
[2018-04-04 09:48] LABS: APPEARANCE SL. HAZY-YELLOW; BODY FLUID EOSINOPHILS 0 % (0-25); BODY FLUID RBC'S 1000 /MM^3 (0-100); BODY FLUID WBC'S 120 /MM^3 (0-500); MONONUCLEAR WBC'S 81 %; POLYNUCLEAR WBC'S 19 % (0-25)
== END | disposition home or self-care (01) ==
LOC: RAD 08:23
PROVIDERS: Specialist
PROC: 0W9G3ZX Drainage of Peritoneal Cavity, Percutaneous Approach, Diagnostic (ICD-10-PCS; principal; 2018-04-04)
DX: R18.8 Other ascites (principal)
CPT/HCPCS: 49083; 88108; 88305; 89051

== ENCOUNTER → 2018-04-11 | Outpatient (CLI) | payer OTHER | END | disposition home or self-care (01) | LOC: RAD 03-10 08:15 | PROC: 0W9G3ZZ Drainage of Peritoneal Cavity, Percutaneous Approach (ICD-10-PCS; principal; 2018-04-11) | DX: R18.8 Other ascites (principal); K74.60 Unspecified cirrhosis of liver | CPT/HCPCS: 49083; P9047 ==

== ENCOUNTER → 2018-04-18 | Outpatient (CLI) | payer OTHER | END | disposition home or self-care (01) | LOC: RAD 08:16 | PROC: 0W9G3ZZ Drainage of Peritoneal Cavity, Percutaneous Approach (ICD-10-PCS; principal; 2018-04-18) | DX: R18.8 Other ascites (principal); K74.60 Unspecified cirrhosis of liver | CPT/HCPCS: 49083; P9047 ==

== ENCOUNTER 2018-04-22 08:20 | Emergency (ER) | payer OTHER ==
[~2018-04-22] VITALS: Ht 157.5 cm; Wt 89.2 kg
[2018-04-22 09:23] LABS: BASOPHIL (%) 0.6 % (0-1); EOSINOPHIL (%) 5.2 % (0-5); EOSINOPHIL COUNT 0.2 K/uL (0-0.3); HEMATOCRIT 27.5 % (36.0-46.0); HEMOGLOBIN 9.3 G/DL (11.9-15.5); IMMATURE GRANULOCYTE (%) 0.3 % (0.0-0.7); LYMPHOCYTE (%) 12.3 % (15-42); LYMPHOCYTE COUNT 0.4 K/uL (1.0-2.8); MCH 30.4 PG (29.0-34.0); MCHC 33.8 G/DL (30.0-36.0); MCV 89.9 FL (83-99); MONOCYTE (%) 10.5 % (3-12); MONOCYTE COUNT 0.3 K/uL (0-0.8); NEUTROPHIL (%) 71.1 % (45-76); NEUTROPHIL COUNT 2.3 K/uL (1.8-6.4); PLATELET COUNT 57 K/uL (156-360); RBC DIS.WIDTH-CV 16.1 % (11.8-14.6); RBC DIS.WIDTH-SD 53.3 % (39-53); RED BLOOD COUNT 3.06 M/uL (3.80-5.20); WHITE BLOOD COUNT 3.2 K/uL (4.1-10.2)
[2018-04-22 09:29] LABS: INTER. NORMALIZED RATIO 1.2
[2018-04-22 09:33] LABS: ALBUMIN 3.6 g/dL (3.2-4.8)
[2018-04-22 09:34] LABS: CHLORIDE 106 mEq/L (99-109); POTASSIUM 4.4 mEq/L (3.7-5.4); SODIUM 132 mEq/L (136-147)
[2018-04-22 09:36] LABS: GLUCOSE 119 mg/dL (70-99); TOTAL PROTEIN 6.1 g/dL (6.4-8.3)
[2018-04-22 09:38] LABS: TOTAL BILIRUBIN 0.8 mg/dL (0.0-1.0)
[2018-04-22 09:39] LABS: ALKALINE PHOSPHATASE 256 IU/L (3-129)
[2018-04-22 09:40] LABS: CREATININE 0.7 mg/dL (0.6-1.3); GFR ESTIMATE (CALCULATED) > 59 mL/min/
[2018-04-22 09:41] LABS: AST (GOT) 49 IU/L (2-34); UREA NITROGEN (BUN) 10 mg/dL (9-23)
[2018-04-22 09:43] LABS: ALT (GPT) 28 IU/L (3-49); LIPASE 36 U/L (1.0-51.0)
[2018-04-22 11:49] LABS: TYPE OF FLUID PARACENTESIS
[2018-04-22 12:34] LABS: APPEARANCE YELLOW-SL HAZY; BODY FLUID EOSINOPHILS 1 % (0-25); BODY FLUID RBC'S < 1000 /MM^3 (0-100); BODY FLUID WBC'S 62 /MM^3 (0-500); COMMENT MANY MACROPHAGES AND FEW MESOTHELIAL CELLS SEEN; MONONUCLEAR WBC'S 56 %; POLYNUCLEAR WBC'S 43 % (0-25)
[2018-04-22 15:53] VITALS: BP 108/46
== END 2018-04-22 15:57 | disposition home or self-care (01) ==
LOC: EME 08:20
PROVIDERS: Emergency Medicine
DX: R18.8 Other ascites (principal); K72.10 Chronic hepatic failure without coma; R06.02 Shortness of breath; J44.9 Chronic obstructive pulmonary disease, unspecified; Z76.82 Awaiting organ transplant status; Z87.891 Personal history of nicotine dependence
CPT/HCPCS: 49083; 71045; 80053; 82140; 83605; 83690; 85025; 85610; 87040; 87070; 87205; 89051; 93005; 99281; 99285; P9047

== ENCOUNTER → 2018-04-25 | Outpatient (CLI) | payer OTHER | END | disposition home or self-care (01) | LOC: RAD 08:05 | PROC: 0W9G3ZZ Drainage of Peritoneal Cavity, Percutaneous Approach (ICD-10-PCS; principal; 2018-04-25) | DX: R18.8 Other ascites (principal); K74.60 Unspecified cirrhosis of liver | CPT/HCPCS: 49083; P9047 ==

== ENCOUNTER → 2018-05-02 | Outpatient (CLI) | payer OTHER | END | disposition home or self-care (01) | LOC: RAD 08:06 | PROC: 0W9G3ZZ Drainage of Peritoneal Cavity, Percutaneous Approach (ICD-10-PCS; principal; 2018-05-02) | DX: R18.8 Other ascites (principal); K74.60 Unspecified cirrhosis of liver | CPT/HCPCS: 49083; P9047 ==

== ENCOUNTER → 2018-05-05 | Outpatient (CLI) | payer OTHER | END | disposition home or self-care (01) | LOC: RAD 08:03 | PROC: 0W9G3ZZ Drainage of Peritoneal Cavity, Percutaneous Approach (ICD-10-PCS; principal; 2018-05-05) | DX: R18.8 Other ascites (principal); K74.60 Unspecified cirrhosis of liver | CPT/HCPCS: 49083; P9047 ==

== ENCOUNTER → 2018-05-09 | Outpatient (CLI) | payer OTHER ==
[2018-05-09 08:55] LABS: TYPE OF FLUID PARACENTESIS
[2018-05-09 10:07] LABS: BODY FLUID EOSINOPHILS 0 % (0-25); BODY FLUID RBC'S < 1000 /MM^3 (0-100); BODY FLUID WBC'S 61 /MM^3 (0-500); MONONUCLEAR WBC'S 51 %; POLYNUCLEAR WBC'S 49 % (0-25)
[2018-05-09 11:17] LABS: COMMENT MODERATE MACROPHAGES
== END | disposition home or self-care (01) ==
LOC: RAD 08:02
PROVIDERS: Specialist
PROC: 0W9G3ZZ Drainage of Peritoneal Cavity, Percutaneous Approach (ICD-10-PCS; principal; 2018-05-09)
DX: R18.8 Other ascites (principal); K74.60 Unspecified cirrhosis of liver
CPT/HCPCS: 49083; 88108; 89051; P9047

== ENCOUNTER → 2018-05-11 | Outpatient (CLI) | payer OTHER | END | disposition home or self-care (01) | LOC: RAD 08:07 | PROC: 0W9G3ZZ Drainage of Peritoneal Cavity, Percutaneous Approach (ICD-10-PCS; principal; 2018-05-11) | DX: R18.8 Other ascites (principal); K74.60 Unspecified cirrhosis of liver | CPT/HCPCS: 49083; P9047 ==

== ENCOUNTER → 2018-05-16 | Outpatient (CLI) | payer OTHER | END | disposition home or self-care (01) | LOC: RAD 08:21 | PROC: 0W9G3ZZ Drainage of Peritoneal Cavity, Percutaneous Approach (ICD-10-PCS; principal; 2018-05-16) | DX: R18.8 Other ascites (principal); K74.60 Unspecified cirrhosis of liver | CPT/HCPCS: 49083; P9047 ==

== ENCOUNTER 2018-05-18 11:16 | Emergency (ER) | payer OTHER ==
[~2018-05-18] VITALS: Ht 157.5 cm; Wt 73.4 kg
[~2018-05-18 11:16] MED LIST changes: -BUSPAR30 MG PO; -NEURONTIN300 MG PO; -SPIRIVA1 INHALATI IH; -VENTOLIN HFA18 GM IH
[2018-05-18 12:05] LABS: HEMATOCRIT 30.7 % (36.0-46.0); HEMOGLOBIN 10.4 G/DL (11.9-15.5); MCH 29.2 PG (29.0-34.0); MCHC 33.9 G/DL (30.0-36.0); MCV 86.2 FL (83-99); PLATELET COUNT 57 K/uL (156-360); RBC DIS.WIDTH-CV 15.9 % (11.8-14.6); RBC DIS.WIDTH-SD 50.4 % (39-53); RED BLOOD COUNT 3.56 M/uL (3.80-5.20); WHITE BLOOD COUNT 5.9 K/uL (4.1-10.2)
[2018-05-18 12:22] LABS: CHLORIDE 102 mEq/L (99-109); POTASSIUM 4.9 mEq/L (3.7-5.4); SODIUM 125 mEq/L (136-147)
[2018-05-18 12:24] LABS: GLUCOSE 113 mg/dL (70-99)
[2018-05-18 12:27] LABS: TROP-I INTERPRETATION NEGATIVE; TROPONIN-I < 0.01 ng/mL (0.0-0.30)
[2018-05-18 12:28] LABS: CREATININE 0.7 mg/dL (0.6-1.3); GFR ESTIMATE (CALCULATED) > 59 mL/min/; UREA NITROGEN (BUN) 16 mg/dL (9-23)
[2018-05-18 12:54] LABS: TOTAL PROTEIN 6.6 g/dL (6.4-8.3)
[2018-05-18 12:55] LABS: ALKALINE PHOSPHATASE 186 IU/L (3-129)
[2018-05-18 12:57] LABS: AST (GOT) 43 IU/L (2-34); DIRECT BILIRUBIN 0.4 mg/dL (0.0-0.3)
[2018-05-18 12:58] LABS: ALT (GPT) 24 IU/L (3-49)
[2018-05-18 13:03] LABS: INTER. NORMALIZED RATIO 1.1
[2018-05-18 13:05] LABS: PTT 30.8 SEC (25-37)
[2018-05-18 17:12] VITALS: BP 110/70
== END 2018-05-18 17:35 | disposition home or self-care (01) ==
LOC: EME 11:16
PROVIDERS: Nurse Practitioner Family
PROC: 0HQ7XZZ Repair Abdomen Skin, External Approach (ICD-10-PCS; principal; 2018-05-18)
DX: R07.89 Other chest pain (principal); K70.31 Alcoholic cirrhosis of liver with ascites; K63.2 Fistula of intestine; E87.1 Hypo-osmolality and hyponatremia; R10.9 Unspecified abdominal pain; R05 Cough; R06.02 Shortness of breath; Z91.14 Patient's other noncompliance with medication regimen; J44.9 Chronic obstructive pulmonary disease, unspecified; Z76.82 Awaiting organ transplant status; Z87.891 Personal history of nicotine dependence
CPT/HCPCS: 71046; 76705; 80048; 80076; 82140; 84484; 85027; 85610; 85730; 93005; 99281; 99284; J2270; J2405; J7030

== ENCOUNTER 2018-05-21 16:56 | Inpatient (IN) | payer OTHER ==
[~2018-05-21] VITALS: Ht 165.1 cm; Wt 71.3 kg
[2018-05-21 17:35] LABS: BASOPHIL (%) 0.5 % (0-1); BASOPHIL COUNT 0.1 K/uL (0-0.1); EOSINOPHIL (%) 5.1 % (0-5); EOSINOPHIL COUNT 0.5 K/uL (0-0.3); HEMATOCRIT 33.8 % (36.0-46.0); HEMOGLOBIN 11.4 G/DL (11.9-15.5); IMMATURE GRANULOCYTE (%) 0.3 % (0.0-0.7); LYMPHOCYTE (%) 9.3 % (15-42); LYMPHOCYTE COUNT 0.9 K/uL (1.0-2.8); MCH 29.3 PG (29.0-34.0); MCHC 33.7 G/DL (30.0-36.0); MCV 86.9 FL (83-99); MONOCYTE (%) 13.8 % (3-12); MONOCYTE COUNT 1.4 K/uL (0-0.8); RBC DIS.WIDTH-CV 16.1 % (11.8-14.6); RBC DIS.WIDTH-SD 51.3 % (39-53); RED BLOOD COUNT 3.89 M/uL (3.80-5.20); WHITE BLOOD COUNT 9.9 K/uL (4.1-10.2)
[2018-05-21 17:37] LABS: PLATELET COUNT 90 K/uL (156-360)
[2018-05-21 17:43] LABS: ALBUMIN 3.6 g/dL (3.2-4.8); CHLORIDE 103 mEq/L (99-109); POTASSIUM 4.9 mEq/L (3.7-5.4); SODIUM 127 mEq/L (136-147)
[2018-05-21 17:45] LABS: GLUCOSE 108 mg/dL (70-99)
[2018-05-21 17:46] LABS: TOTAL PROTEIN 6.3 g/dL (6.4-8.3)
[2018-05-21 17:48] LABS: TOTAL BILIRUBIN 1.3 mg/dL (0.0-1.0)
[2018-05-21 17:49] LABS: ALKALINE PHOSPHATASE 190 IU/L (3-129); CREATININE 0.8 mg/dL (0.6-1.3); GFR ESTIMATE (CALCULATED) > 59 mL/min/
[2018-05-21 17:50] LABS: UREA NITROGEN (BUN) 19 mg/dL (9-23)
[2018-05-21 17:51] LABS: AST (GOT) 37 IU/L (2-34)
[2018-05-21 17:52] LABS: ALT (GPT) 25 IU/L (3-49); LIPASE 85 U/L (1.0-51.0)
[2018-05-21 17:58] LABS: TROP-I INTERPRETATION NEGATIVE; TROPONIN-I 0.02 ng/mL (0.0-0.30)
[2018-05-21 20:45] LABS: APPEARANCE SL.HAZY ((CLEAR)); BILIRUBIN NEGATIVE; BLOOD NEGATIVE; COLOR YELLOW ((YELLOW)); GLUCOSE (STRIP) NEGATIVE; KETONES NEGATIVE; LEUKOCYTES NEGATIVE; NITRITE NEGATIVE; PROTEIN (STRIP) NEGATIVE; UROBILINOGEN 0.2 MG/DL (0.2-1.0)
[2018-05-21 20:54] LABS: BACTERIA RARE /HPF; EPITHELIAL CELLS 1+ /HPF; HYALINE CASTS 0-5 /LPF; MUCUS 1+ /LPF; RED BLOOD CELLS 0-5 /HPF (0-5); UCUL ADDED? NO; WHITE BLOOD CELLS 0-5 /HPF (0-5)
[2018-05-22 00:15] VITALS: BP 112/57
[2018-05-22 04:12] VITALS: BP 122/58
[2018-05-22 05:45] LABS: BASOPHIL (%) 0.4 % (0-1); BASOPHIL COUNT 0.1 K/uL (0-0.1); EOSINOPHIL (%) 1.3 % (0-5); EOSINOPHIL COUNT 0.2 K/uL (0-0.3); HEMOGLOBIN 10.6 G/DL (11.9-15.5); IMMATURE GRANULOCYTE (%) 0.4 % (0.0-0.7); LYMPHOCYTE (%) 6.2 % (15-42); LYMPHOCYTE COUNT 0.7 K/uL (1.0-2.8); MCH 28.6 PG (29.0-34.0); MCHC 33.1 G/DL (30.0-36.0); MCV 86.3 FL (83-99); MONOCYTE (%) 13.1 % (3-12); MONOCYTE COUNT 1.6 K/uL (0-0.8); NEUTROPHIL (%) 78.6 % (45-76); NEUTROPHIL COUNT 9.4 K/uL (1.8-6.4); PLATELET COUNT 80 K/uL (156-360); RBC DIS.WIDTH-CV 15.9 % (11.8-14.6); RBC DIS.WIDTH-SD 50.6 % (39-53); RED BLOOD COUNT 3.71 M/uL (3.80-5.20)
[2018-05-22 06:03] LABS: ALBUMIN 2.9 G/DL (3.2-4.8); ALKALINE PHOSPHATASE 139 IU/L (3-129); ALT (GPT) 18 IU/L (3-49); AST (GOT) 26 IU/L (2-34); CHLORIDE 104 MEQ/L (99-109); CREATININE 0.7 MG/DL (0.6-1.3); GFR ESTIMATE (CALCULATED) > 59 mL/min/; GLUCOSE 105 mg/dL (70-99); POTASSIUM 5.1 MEQ/L (3.7-5.4); SODIUM 128 MEQ/L (136-147); TOTAL BILIRUBIN 1.9 MG/DL (0.0-1.0); UREA NITROGEN (BUN) 22 mg/dL (9-23)
[2018-05-22 08:43] VITALS: BP 124/60
[2018-05-22] MEDS ORDERED: PRAZOSIN HCL1 MG PO (10:29)
[2018-05-22] MEDS ORDERED: KLONOPIN1 MG PO (10:33)
[2018-05-22] MEDS ORDERED: INDERAL10 MG PO (10:34)
[2018-05-22] MEDS ORDERED: VENTOLIN HFA18 GM IH (10:34)
[2018-05-22] MEDS ORDERED: ABILIFY15 MG PO (10:36)
[2018-05-22] MEDS ORDERED: BUSPAR30 MG PO (10:36)
[2018-05-22] MEDS ORDERED: LEXAPRO20 MG PO (10:36)
[2018-05-22] MEDS ORDERED: ONDANSETRON HCL4 MG PO (10:38)
[2018-05-22] MEDS ORDERED: SPIRIVA1 INHALATI IH (10:39)
[2018-05-22] MEDS ORDERED: NEURONTIN300 MG PO (10:39)
[2018-05-22] MEDS ORDERED: ADVAIR 500/501 DISK IH (10:40)
[2018-05-22] MEDS ORDERED: SPIRONOLACTONE100 MG PO (10:40)
[2018-05-22] MEDS ORDERED: METOLAZONE5 MG PO (10:41)
[2018-05-22] MEDS ORDERED: OXYCODONE HCL10 MG PO (10:41)
[2018-05-22] MEDS ORDERED: RANITIDINE HCL150 MG PO (10:41)
[2018-05-22 11:52] VITALS: BP 99/47
[2018-05-22 15:23] VITALS: BP 118/68
[2018-05-22 17:49] LABS: CHLORIDE 106 mEq/L (99-109); POTASSIUM 5.2 mEq/L (3.7-5.4); SODIUM 128 mEq/L (136-147)
[2018-05-22 17:50] LABS: GLUCOSE 113 mg/dL (70-99)
[2018-05-22 17:54] LABS: CREATININE 0.8 mg/dL (0.6-1.3); GFR ESTIMATE (CALCULATED) > 59 mL/min/
[2018-05-22 17:55] LABS: UREA NITROGEN (BUN) 21 mg/dL (9-23)
[2018-05-22 17:57] LABS: URIC ACID 4.4 mg/dL (3.1-9.2)
[2018-05-22 20:00] VITALS: BP 105/52
[2018-05-23] VITALS (7 sets, daily range): BP systolic 95–107; BP diastolic 40–54
[2018-05-23 06:10] LABS: ALBUMIN 2.8 G/DL (3.2-4.8); ALKALINE PHOSPHATASE 119 IU/L (3-129); ALT (GPT) 13 IU/L (3-49); AST (GOT) 20 IU/L (2-34); CHLORIDE 103 MEQ/L (99-109); GFR ESTIMATE (CALCULATED) > 59 mL/min/; GLUCOSE 119 mg/dL (70-99); POTASSIUM 4.5 MEQ/L (3.7-5.4); SODIUM 128 MEQ/L (136-147); UREA NITROGEN (BUN) 25 mg/dL (9-23)
[2018-05-23 06:25] LABS: TOTAL BILIRUBIN 1.4 MG/DL (0.0-1.0)
[2018-05-23 15:02] LABS: HEMATOCRIT 28.9 % (36.0-46.0); HEMOGLOBIN 9.4 G/DL (11.9-15.5); MCH 28.7 PG (29.0-34.0); MCHC 32.5 G/DL (30.0-36.0); MCV 88.1 FL (83-99); PLATELET COUNT 70 K/uL (156-360); RBC DIS.WIDTH-CV 15.9 % (11.8-14.6); RBC DIS.WIDTH-SD 51.2 % (39-53); RED BLOOD COUNT 3.28 M/uL (3.80-5.20); WHITE BLOOD COUNT 8.2 K/uL (4.1-10.2)
[2018-05-23 15:08] LABS: INTER. NORMALIZED RATIO 1.3
== END 2018-05-23 22:09 | disposition short-term general hospital (02) | DRG 863 ==
LOC: EME 16:56 → 4EAST 22:56 → EDOF 22:56 → 4EAST 05-22 00:15
PROVIDERS: Emergency Medicine; Internal Medicine; Internal Medicine Nephrology
DX: T81.4XXA Infection following a procedure, initial encounter (principal); E87.1 Hypo-osmolality and hyponatremia; E87.2 Acidosis; R18.8 Other ascites; D61.818 Other pancytopenia; K76.6 Portal hypertension; N17.9 Acute kidney failure, unspecified; Z66 Do not resuscitate; Z51.5 Encounter for palliative care; I95.9 Hypotension, unspecified; K74.69 Other cirrhosis of liver; E03.9 Hypothyroidism, unspecified; E86.0 Dehydration; F41.9 Anxiety disorder, unspecified; G89.29 Other chronic pain; F31.9 Bipolar disorder, unspecified; G40.909 Epilepsy, unspecified, not intractable, without status epilepticus; K72.10 Chronic hepatic failure without coma; J44.9 Chronic obstructive pulmonary disease, unspecified; M19.90 Unspecified osteoarthritis, unspecified site; L98.8 Other specified disorders of the skin and subcutaneous tissue; K42.9 Umbilical hernia without obstruction or gangrene; E66.9 Obesity, unspecified; R16.1 Splenomegaly, not elsewhere classified; K72.90 Hepatic failure, unspecified without coma; Z76.82 Awaiting organ transplant status; Z85.41 Personal history of malignant neoplasm of cervix uteri; Z87.891 Personal history of nicotine dependence; Z93.3 Colostomy status; Z91.041 Radiographic dye allergy status; Z68.26 Body mass index [BMI] 26.0-26.9, adult; Z80.9 Family history of malignant neoplasm, unspecified; Z82.5 Family history of asthma and other chronic lower respiratory diseases
CPT/HCPCS: 36600; 71046; 74176; 80048 91; 80053; 80202; 81003; 83605; 83690; 83880; 83935; 84300; 84484; 84550; 85025; 85027; 85610; 87040; 87070; 87075; 87205; 89051; 93005; 94640; 94799; 99281; 99285; C9113; J1170; J2405; J2543; J3010; J3370; J7030; J7050; J7120